=== PATIENT | female | born 1930 | race Caucasian/White ===

== ENCOUNTER 2017-10-20 21:44 | Inpatient (IN) | payer MEDICARE ==
[2017-10-20] MEDS ORDERED: NS 0.9% 1000 ML* 1,000 ML IV ONE (22:51)
[2017-10-20] MEDS ORDERED: Morphine INJ* 4 MG/ML 1 ML CARPUJECT IV ONE (22:51)
[2017-10-20] MEDS ORDERED: Ondansetron INJ* 2 MG/ML VIAL IV ONE (22:51)
[2017-10-20 23:20] LABS: Hematocrit 35 % (35-47); Hemoglobin 11.6 g/dl (12.0-16.0); Mean Corpuscular HGB Conc 33 g/dl (31-36); Mean Corpuscular Hemoglobin 31 pg (27-31); Mean Corpuscular Volume 94 fL (80-97); Mean Platelet Volume 10 um3 (7.4-10.4); Red Cell Distribution Width 17 % (10.5-15); White Blood Count 3.5 10^3/ul (3.5-10.8)
[2017-10-20 23:35] LABS: Albumin 3.9 g/dL (3.2-5.2); BUN/Creatinine Ratio 31.1 (8-20); Calcium 11.3 mg/dL (8.6-10.3); EGFR African American 55.2 (>60); EGFR Non-African American 42.9 (>60); Globulin 3.7 g/dL (2-4); Potassium 4.4 mmol/L (3.5-5.0); Total Bilirubin 0.8 mg/dL (0.2-1.0); Total Protein 7.6 g/dL (6.4-8.9)
[2017-10-20] MEDS ORDERED: Iodixanol* (CONTRAST) 320 MG/ML 100 ML SDV IV ONE (23:44)
[2017-10-21] MEDS ORDERED: Piperacillin/Tazobac ADVAN(*) 3.375 GM in NS 0.9% 100 ML* 100 ML IVPB ONE (00:57)
[2017-10-21] MEDS ORDERED: Ondansetron INJ* 2 MG/ML VIAL ONE (03:18)
--- NOTE | 2017-10-21 04:01 | ED ---
Daisy Fuentes Gabriel, scribed for Chayito Pedroza MD on 10/20/17 at 2252 . Adult Trauma - HPI Summary HPI Summary: This patient is a 86 year old F presenting [place] [facility] [place] by daughter with s/p fall that occurred [place]. The patient rates the pain 5/10 in severity. Symptoms aggravated by movement. Patient reports left sided rib pain. Patient denies LOC and neck pain. Pt reports that she has been unsteady recently and tonight she was walking on the sidewalk when she tripped and fell. - History of Current Complaint Chief Complaint: EDHeadInjury Stated Complaint: FALL/ HEAD INJURY Time Seen by Provider: 10/20/17 22:40 Hx Obtained From: Patient Mechanism of Injury: Fall Ambulatory at the Scene: Yes Loss of Consciousness: no loss of consciousness Onset/Duration: Still Present Onset of Pain: Immediate Onset Severity: Mild Current Severity: Mild Pain Intensity: 5 Pain Scale Used: 0-10 Numeric Location: Other - rib Associated Signs & Symptoms: Positive: Negative - LOC and neck pain - Allergy/Home Medications Allergies/Adverse Reactions: Allergies Allergy/AdvReac Type Severity Reaction Status Date / Time Amitriptyline [From Elavil] Allergy Rash Verified 10/20/17 21:52 Codeine Allergy Rash And Verified 10/20/17 21:52 Itching Paroxetine [From Paxil] Allergy Rash Verified 10/20/17 21:52 PMH/Surg Hx/FS Hx/Imm Hx Previously Healthy: No Endocrine/Hematology History: Reports: Hx Thyroid Disease Denies: Hx Diabetes Cardiovascular History: Reports: Hx Atrial Fibrillation EENT History: Denies: Hx Deafness Neurological History: Denies: Hx CVA - Surgical History Surgery Procedure, Year, and Place: mastectomy 1992 Infectious Disease History: No Infectious Disease History: Denies: Traveled Outside the [place] in Last 30 Days - Family History Known Family History: Positive: Other - Graves Negative: Cardiac Disease, Hypertension, Diabetes, Renal Disease, Respiratory Disease, Seizure Disorder Review of Systems Constitutional: Other - fall Musculoskeletal: Negative - neck pain Positive: Other - rib pain Neurological: Negative - LOC All Other Systems Reviewed And Are Negative: Yes Physical Exam - Summary Physical Exam Summary: VITAL SIGNS: Reviewed. GENERAL: Patient is a well-developed and nourished female who is lying comfortable in the stretcher. Patient is not in any acute respiratory distress. HEAD AND FACE: No signs of trauma. No ecchymosis, hematomas or skull depressions. No sinus tenderness. EYES: PERRLA, EOMI x 2, No injected conjunctiva, no nystagmus. ecchymosis and tenderness over left orbital EARS: Hearing grossly intact. Ear canals and tympanic membranes are within normal limits. MOUTH: Oropharynx within normal limits. NECK: Supple, trachea is midline, no adenopathy, no JVD, no carotid bruit, no c- spine tenderness, neck with full ROM. CHEST: Symmetric, Tender in left chest wall LUNGS: Clear to auscultation bilaterally. No wheezing or crackles. decreased breath sounds bilaterally CVS: Regular rate and rhythm, S1 and S2 present, no murmurs or gallops appreciated. ABDOMEN: Soft, non-tender. No signs of distention. No rebound no guarding, and no masses palpated. Bowel sounds are normal. EXTREMITIES: FROM in all major joints, no cyanosis or clubbing. Trace edema bilaterally NEURO: Alert and oriented x 3. No acute neurological deficits. Speech is normal and follows commands. SKIN: Dry and warm Triage Information Reviewed: Yes Vital Signs On Initial Exam: Initial Vitals Temp Pulse Resp BP Pulse Ox 98.4 F 67 16 138/76 98 10/20/17 21:48 10/20/17 21:48 10/20/17 21:48 10/20/17 21:48 10/20/17 21:48 Vital Signs Reviewed: Yes Diagnostics - Vital Signs Vital Signs Temp Pulse Resp BP Pulse Ox 10/20/17 21:48 98.4 F 67 16 138/76 98 - Laboratory Lab Results: Lab Results 10/20/17 10/20/17 Range/Units 23:05 23:05 WBC 3.5 (3.5-10.8) 10^3/ul RBC 3.70 L (4.0-5.4) 10^6/ul Hgb 11.6 L (12.0-16.0) g/dl Hct 35 (35-47) % MCV 94 (80-97) fL MCH 31 (27-31) pg MCHC 33 (31-36) g/dl RDW 17 H (10.5-15) % Plt Count 115 L (150-450) 10^3/ul MPV 10 (7.4-10.4) um3 Neut % (Auto) 56.9 (38-83) % Lymph % (Auto) 24.9 L (25-47) % Greene % (Auto) 12.1 H (1-9) % Eos % (Auto) 3.7 (0-6) % Baso % (Auto) 2.4 H (0-2) % Absolute Neuts (auto) 2.0 (1.5-7.7) 10^3/ul Absolute Lymphs (auto) 0.9 L (1.0-4.8) 10^3/ul Absolute Monos (auto) 0.4 (0-0.8) 10^3/ul Absolute Eos (auto) 0.1 (0-0.6) 10^3/ul Absolute Basos (auto) 0.1 (0-0.2) 10^3/ul Absolute Nucleated RBC 0.01 10^3/ul Nucleated RBC % 0.2 Sodium 135 (133-145) mmol/L Potassium 4.4 (3.5-5.0) mmol/L Chloride 102 (101-111) mmol/L Carbon Dioxide 26 (22-32) mmol/L Anion Gap 7 (2-11) mmol/L BUN 37 H (6-24) mg/dL Creatinine 1.19 H (0.51-0.95) mg/dL Est GFR ( Amer) 55.2 (>60) Est GFR (Non-Af Amer) 42.9 (>60) BUN/Creatinine Ratio 31.1 H (8-20) Glucose 104 H (70-100) mg/dL Calcium 11.3 H (8.6-10.3) mg/dL Total Bilirubin 0.80 (0.2-1.0) mg/dL AST 36 (13-39) U/L ALT 18 (7-52) U/L Alkaline Phosphatase 131 H (34-104) U/L Total Protein 7.6 (6.4-8.9) g/dL Albumin 3.9 (3.2-5.2) g/dL Globulin 3.7 (2-4) g/dL Albumin/Globulin Ratio 1.1 (1-3) Result Diagrams: 10/20/17 23:05 10/20/17 23:05 Lab Statement: Any lab studies that have been ordered have been reviewed, and results considered in the medical decision making process. - CT CT Maxillofacial CT Interpretation Completed By: Radiologist - positive for fracture on the lateral aspect of the left orbital sneha extending laterally to the left orbital floor and maxilla. There is a small amount of blood on the floor of the left orbit. ED physician has reviewed this radiology report. - Ultrasound No standard instances Ultrasound Interpretation Completed By: Radiologist - Splenic cyst. No splenic hematoma Adult Trauma Course/Dx - Course Course Of Treatment: Time:I reviewed labs and imaging studies with Pt and her family. Pt C/O left side chest wall. Pt stated that she does not feel comforatble to go home. Because of her pain. Pt given Zosyn for her orbital FX. Pt will be admitted for pain control and Maxilo-facial consult. Case discussed with admitting hospitalist,Dr Howell. She asked me to call DR Carpenter who stated that, Have the hoispitalist admit pt. Pt will be admitted to the hospitalist. Dr Howell. - Diagnoses Provider Diagnoses: Orbital fracture, Nasal bone fx-closed, Chest wall contusion - Physician Notifications Discussed Care Of Patient With: Светлана Howell Time Discussed With Above Provider: 03:30 Instructed by Provider To: Admit As Inpatient Discharge - Discharge Plan Condition: Fair Disposition: AGAINST MEDICAL ADVICE Referrals: Shy Carpenter MD [Primary Care Provider] - The documentation as recorded by the Daisy rose Gabriel accurately reflects the service I personally performed and the decisions made by me, Chayito Pedroza MD.
[2017-10-21] MEDS ORDERED: NS 0.9% 1000 ML* 1,000 ML IV SCH (04:30)
[2017-10-21] MEDS ORDERED: traMADol TAB* 50 MG PO PRN (04:46)
[2017-10-21] MEDS ORDERED: Ondansetron INJ* 2 MG/ML VIAL IV PRN (04:48)
[2017-10-21] MEDS: Levothyroxine TAB* 75 MCG TAB PO SCH (06:19)
[2017-10-21] MEDS: Piperacillin/Tazobac ADVAN(*) 3.375 GM in NS 0.9% 100 ML* 100 ML IVPB SCH ×3 (06:22→19:51)
--- NOTE | 2017-10-21 07:22 | RAD ---
INDICATION: Head injury. COMPARISON: There are no prior studies available for comparison. TECHNIQUE: Contiguous axial sections of the brain were obtained from the skull base to the vertex without contrast. FINDINGS: The ventricles, cisterns and sulci are within normal limits. There is a small focal lacunar infarct present in the anterior limb of the internal capsule on the right side. No other focal abnormalities or mass effect are seen. There is no evidence for hemorrhage. There is an air-fluid level within the left maxillary sinus and there appears to be a bony fragment that region consistent with a fracture. There is CT of the facial bones to follow. IMPRESSION: 1. NO EVIDENCE FOR ACUTE INTRACRANIAL ABNORMALITY. 2. PROBABLE LEFT MAXILLARY SINUS FRACTURE, CT OF THE FACIAL BONES TO FOLLOW. 3. 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
--- NOTE | 2017-10-21 07:35 | RAD ---
INDICATION: Facial trauma. COMPARISON: There are no prior studies available for comparison. TECHNIQUE: Contiguous axial sections of the axial images of the facial bones were obtained and reconstructed in the coronal and sagittal planes. FINDINGS: Soft tissue swelling is noted over the left orbit and maxilla. There is a fracture of the posterior lateral wall of the left orbit extending into the lateral orbital floor. There is slight depression of a portion of the lateral orbital floor up to 4 mm. There is no evidence for muscle or fat herniation. There is an air-fluid level within the left maxillary sinus consistent with the fractures. The zygomatic arch appears intact. The mandible appears intact. There is a slightly depressed fracture of the left nasal bone. There is moderate deviation of the nasal septum toward the left side. The pterygoid plates appear intact. There is an air-fluid level within the left maxillary sinus as previously noted. The paranasal sinuses and mastoid air cells otherwise appear clear. IMPRESSION: 1. NONDISPLACED FRACTURE OF THE POSTEROLATERAL WALL OF THE LEFT ORBIT. 2. SLIGHTLY DEPRESSED FRACTURE OF THE LEFT ORBITAL FLOOR. 3. SLIGHTLY DEPRESSED FRACTURE OF THE LEFT NASAL BONE.
--- NOTE | 2017-10-21 07:45 | RAD ---
INDICATION: Trauma. COMPARISON: There are no prior studies available for comparison. TECHNIQUE: Contiguous axial sections were obtained from the skull base through the C7 vertebra. The tip of the C7 spinous process is not included on the film. Images were reconstructed in the sagittal and coronal planes. FINDINGS: There is straightening of the cervical spine with loss of the normal cervical lordosis. No prevertebral soft tissue swelling or fracture is seen. At the C5-C6 level there is mild posterior uncinate process spurring associated with a mild broad-based bulge. This causes mild spinal canal narrowing. There is mild bilateral neural foraminal narrowing. At the C6-C7 level there is mild posterior uncinate process spurring causing mild spinal canal narrowing and mild bilateral neural foraminal narrowing. IMPRESSION: 1. STRAIGHTENING OF THE CERVICAL SPINE, NO EVIDENCE FOR FRACTURE OR SUBLUXATION. 2. MILD TO MODERATE CERVICAL SPONDYLOSIS.
--- NOTE | 2017-10-21 08:15 | RAD ---
INDICATION: Trauma evaluate for splenic injury, correlate with abnormal CT study. COMPARISON: Comparison is made with a prior CT of the chest abdomen and pelvis from October 21, 2017. TECHNIQUE: Multiple real-time images of the left upper quadrant were obtained. FINDINGS: The spleen is normal in size, shape and echogenicity. The spleen measured 9.7 x 3.8 x 2.7 cm cm. There is a small focal hypoechoic area present in the central portion of the spleen which is well-defined measuring 0.8 x 0.7 x 0.9 cm. This appears smaller than the CT abnormality and is suggestive of a cyst. No hematoma is seen. No free intraperineal fluid is noted. The left kidney is visualized and measures 10.4 x 5.5 x 4.7 cm. No focal abnormality or hydronephrosis is seen. IMPRESSION: THE SPLEEN IS NORMAL IN SIZE THERE IS A SMALL HYPOECHOIC LESION LIKELY REPRESENTING A CYST.
--- NOTE | 2017-10-21 08:22 | HP ---
ADDENDUM NOW INCLUDED ON THIS REPORT CC: Dr. Carpenter * HISTORY AND PHYSICAL: DATE OF ADMISSION: 10/21/17 PRIMARY CARE PROVIDER: Dr. Shy Carpenter. CHIEF COMPLAINT: Status post fall. HISTORY OF PRESENT ILLNESS: Ludmila Wood is an 86-year-old female with history of paroxysmal atrial fibrillation, hypertension, CHF. The patient stated that she was walking on side walk and she tripped and fell. She hit her left chest and the left side of her head. She suffered from orbital floor fracture and left nasal bone fracture. She also appears to have bruise to her chest, she complains of pleuritic chest pain after the fall. The patient lives alone in [facility] and she is going to be placed on overnight observation for physical therapy evaluation to return home. PAST MEDICAL HISTORY: 1. History of atrial fibrillation. 2. History of CHF. 3. History of hyperthyroidism, status post radioiodine treatment and subsequent hypothyroidism. 4. Dyslipidemia. 5. History of mastectomy in 1992. 6. History of chronic kidney disease, stage 2 to 3, with creatinine at baseline of 1.1 to 1.2. MEDICATIONS: At home, include: 1. Aldactone 25 mg daily. 2. Magnesium chloride 64 mg daily. 3. Levothyroxine 75 mcg daily. 4. Hydrochlorothiazide 50 mg daily. 5. Furosemide 20 mg daily. 6. Aspirin 81 mg daily. Please note that this medication list was produced by the patient from memory. She did not bring a list and we were unable to access for any medical records or the patient's pharmacy records to confirm it. ALLERGIES: Include AMITRIPTYLINE, CODEINE, and PAROXETINE. FAMILY HISTORY: Positive for mother who at age of 86 secondary to stroke and father who at age of 67 secondary to heart disease. SOCIAL HISTORY: The patient lives alone in [facility] in senior apartment living building. Her surrogate is her daughter, Eulalia. The patient is do not resuscitate. She quit smoking in 1956 and drinks rare alcohol. She denies any drug use. The patient stated that she ambulates usually without any use of a walker or a cane. REVIEW OF SYSTEMS: Please see history of present illness. The patient stated that occasionally her legs get swollen, but otherwise she has not noted any problems with increasing shortness of breath, worsening leg edema or increase in weight. The patient had been in her usual state of health before the fall and denies any prodrome of symptoms, specifically she denies any chest pain or shortness of breath. After the fall, she noted left-sided pleuritic chest pain. She denies loss of consciousness before the fall. All the remaining 12 systems were reviewed with the patient and were otherwise negative. PHYSICAL EXAMINATION GENERAL: The patient is a pleasant 86-year-old female with a BMI of 32. The patient is in no acute distress. Alert, awake, and oriented x3. Rather hard of hearing. VITAL SIGNS: Blood pressure of 103/35, heart rate of 50 and regular, respiratory rate 20, oxygen saturation 94% on room air, temperature 98.4. HEENT: Head: With an ecchymotic area surrounding the left eye. Eyes: Extraocular muscles are intact. Pupils are equal and reactive to light and accommodation. Oropharynx clear. Mucosa moist. NECK: Supple. No JVD. No bruits bilaterally. RESPIRATORY: Clear to auscultation bilaterally. CARDIOVASCULAR: Regular rate and rhythm. No murmurs. ABDOMEN: Soft and nontender. Bowel sounds present in all 4 quadrants. EXTREMITIES: There is trace bilateral ankle edema. Pulses are +2 bilaterally. There is no clubbing or cyanosis. NEURO: Speech is clear. Cranial nerves II through XII grossly intact. Motor strength is 5/5 bilaterally. PSYCHIATRIC: Oriented x3 with no evidence of anxiety or depression. SKIN: On evaluation of the skin, there is an ecchymotic area overlying the left eye. There is also abrasion on the left side of the patient's nose. No other bruises, ecchymosis, or rashes were noted. DIAGNOSTIC STUDIES/LAB DATA: chloride 102, carbon dioxide 26, BUN 37, creatinine 1.19. Liver function tests are unremarkable. Calcium level of 11.3. CBC: White blood cell count of 3.5, hemoglobin of 11.6, hematocrit of 35 , and platelet of 115. The patient's brain CT, impression: "No hemorrhage. No mass. Very small lacunar infarct anterior limb, right internal capsule, indeterminate age. No other obvious infarcts. The skull is intact. Fluid in the right maxillary sinus. Facial CT to follow." Maxillofacial CT, impression: " fracture of the lateral aspect of the lateral orbital floor extending on the right to the junction of the left orbital floor and maxilla. No herniation of orbital contents; however, there was a small amount of blood layering in the floor of the left orbit. Please note that the left infraorbital foramen may be involved. Check for cheek numbness. There is also a new minimally displaced fracture of the left nasal bone. No other orbital or facial fractures. Globes and orbits are intact. Fluid, blood in the left maxillary sinus." Cervical spine CT showed no fractures. CT of the abdomen showed 1.7-cm complex splenic lesion, appears to be complex cyst. There are also liver cysts noted. A subsequent abdominal ultrasound, impression: "The splenic lesion actually appeared smaller on the ultrasound; it looks like a cyst, 1 cm. No evidence of splenic hematoma, laceration, or perisplenic fluid." ASSESSMENT AND PLAN: Ludmila Wood is an 86-year-old female who had a mechanical fall and suffered from a left orbital fracture. The patient is going to be placed on overnight observation. I will leave it to the attending physician during the daytime to discuss the patient's case with either ENT physician or surgeon in regards to patient's orbital fracture. For the time being, as per the ED physician's recommendation, the patient was continued on Zosyn that was started in the emergency department due to the patient's orbital/ maxillary fracture. 1. In regards to the patient's congestive heart failure, that is not in exacerbation. The patient is going to be continued on her daily medications as well as daily weights are going to be obtained. 2. For patient's hypothyroidism, levothyroxine is going to be continued as previously taken. 3. In regards to the patient's atrial fibrillation, today during her evaluation , she was in regular rhythm. She is on baby aspirin, which is going to be continued. 4. For DVT prophylaxis, the patient is going to be placed on sequential compression devices. Heparin is not going to be started on the patient due to fracture with scant blood in the maxillary sinus. 5. The patient's code status is do not resuscitate and MOLST form was signed. 6. In regards to the patient's left chest contusion, incentive spirometry is going to be provided. 7. To evaluate this patient status post fall, Physical Therapy, Occupational Therapy will see the patient for evaluation. TIME SPENT: Approximately 65 minutes was spent on admission of this patient, more than half that time was spent [id number] with the patient during the interview and physical exam. ADDENDUM: In regards to the patient's hypercalcemia, the patient has history of mild hypercalcemia in the past. She is on hydrochlorothiazide that may contribute to hypercalcemia that is going to be discontinued. The patient's parathyroid hormone level is going to be obtained. We will repeat calcium level after the 1 L of normal saline that she received in the emergency department. Due to her history of congestive heart failure and due to she is on multiple diuretics, I will not institute anymore intravenous hydration until her lab work comes back. [id number]/[facility]PS #: [id number]/CPS #: [id number] SEVEN
--- NOTE | 2017-10-21 08:22 | RAD ---
INDICATION: Tripped and fell. Left rib pain. Request for CT chest/abdomen/pelvis COMPARISON: Limited abdominal sonogram same date TECHNIQUE: Axial source images were obtained from the thoracic inlet to the symphysis pubis following administration of oral and intravenous contrast. 100 mL Visipaque 320 was utilized. Coronal and sagittal reconstructed images were acquired. CHEST FINDINGS: Neck/thyroid: The cephalad most images are believed to show the caudal portions of both submandibular glands. The visualized thyroid appears diminutive.. Chest wall: There are no acute abnormalities of the bony thorax or chest wall. Reconstructed sagittal images show slight cortical offset of the sternum which is believed to be related to registration artifact from breathing motion. The ER states that there is no sternal trauma. There is no supraclavicular, infraclavicular, or axillary lymphadenopathy. Lungs : There are no pulmonary parenchymal masses or infiltrates. There is mild basilar atelectasis. The pulmonary interstitium appears prominent. There are no endobronchial lesions. Cardiomediastinal structures: There is significant cardiomegaly. There is a tiny pericardial effusion There is no evidence of aortic aneurysm or dissection. The pulmonary vessels appear normal. There is no mediastinal or hilar adenopathy. The esophagus appears normal. Pleura : There are no pleural-based masses or effusions. ABDOMINAL/PELVIC FINDINGS: Liver: The liver is normal in size. There is a 2.4 cm cyst of the hepatic dome. There is no ductal dilatation. Gallbladder: There are no calcified gallstones. There is no evidence of wall thickening or pericholecystic fluid. Spleen: The spleen is normal in size. There are low suspicion hypodense splenic entities in the 1 cm range which on ultrasonography are most consistent with cysts. Pancreas: There is no evidence of pancreatic mass or ductal dilatation. Adrenal glands: There is no evidence of adrenal mass. Kidneys: The kidneys are normal in size and position. There are prompt nephrograms and there is prompt excretion bilaterally. There are no renal parenchymal masses. There is no evidence of nephrolithiasis. Adenopathy: There is no evidence of adenopathy by size criteria. Fluid collections: There are no free or localized fluid collections. Vessels:There are atherosclerotic changes of the aorta. There is no focal aneurysm. The IVC is unremarkable . There are prominent periuterine vessels GI tract: There are no acute CT bowel findings. There is no obstruction. The stomach and small bowel appear normal. The lower GI tract is normal. The cecum, ileocecal valve, and terminal ileum appear normal. The appendix is visualized and appear normal. Pelvic organs: The uterus and adnexa appear normal other than the prominent periuterine vessels Bladder: There are no bladder masses. Abdominal and pelvic soft tissues: The extraperitoneal abdominal and pelvic soft tissues appear normal.. Osseous structures: There are no acute osseous findings. There are spondylitic changes. IMPRESSION: 1. CT findings most consistent with hepatic and splenic cysts. 2. Marked cardiomegaly. Prominent pulmonary arteries. Suspect right-sided heart failure. 3. No CT evidence of traumatic injury to the solid viscera or free fluid.
--- NOTE | 2017-10-21 08:30 | HP ---
HISTORY AND PHYSICAL: ADDENDUM: In regards to the patient's hypercalcemia, the patient has history of mild hypercalcemia in the past. She is on hydrochlorothiazide that may contribute to hypercalcemia that is going to be discontinued. The patient's parathyroid hormone level is going to be obtained. We will repeat calcium level after the 1 L of normal saline that she received in the emergency department. Due to her history of congestive heart failure and due to she is on multiple diuretics, I will not institute anymore intravenous hydration until her lab work comes back. [id number]/[facility] #: [id number] [facility]ITAL[facility]
[2017-10-21] MEDS: Aspirin EC Low Dose* 81 MG TAB.EC PO SCH (08:32)
[2017-10-21] MEDS: Magnesium Chloride EC TAB* 64 MG PO SCH ×3 (08:32→19:50)
[2017-10-21] MEDS ORDERED: Furosemide TAB* 20 MG PO SCH (09:00)
[2017-10-21] MEDS ORDERED: Hydrochlorothiazide TAB* 25 MG PO SCH (09:00)
[2017-10-21] MEDS ORDERED: Spironolactone TAB* 25 MG PO SCH ×2 (09:00→21:00)
[2017-10-21 09:53] LABS: Calcium (PTH Intact) 10.3 mg/dL (8.6-10.3)
[2017-10-21] MEDS: Furosemide TAB* 20 MG PO SCH (12:06)
--- NOTE | 2017-10-21 20:29 | CONS ---
CC: Dr. Shy Carpenter; Dr. River CARDIOLOGY CONSULTATION: DATE OF CONSULT: 10/21/17 REASON FOR EVALUATION: Bradycardia and fall. HISTORY OF PRESENT ILLNESS: This is a very pleasant 86-year-old woman with a history of a cardiomyopathy about 40 years ago, possibly related to untreated Graves' disease and tachycardia-induced cardiomyopathy and AFib. She had CHF at that time and was treated at [facility]. She apparently recovered from that and had normal LV function on a subsequent echo and as recently in 2014, she did develop severe TR and right-sided heart failure and has been treated aggressively with diuretics for that. She said that earlier this year, her Aldactone was increased. She said that she lives independently and drives. She can walk 5 or 10 minutes without a problem usually, but she had about a month ago, she got more winded walking to [facility], which had not been a problem for her earlier in the year. She was at a green party at a local restaurant with some friends and family. She said that she was there about 2 hours, had no alcoholic beverages. She said that she got up to leave and was walking out, she grabbed the hand rail, walked down the stairs and then she was walking a short distance and turned to speak to somebody and lost the balance and fell, smashed the left side of her face. She denies that she lost consciousness, but she thinks she lost her balance. She hit her left chest and left side of her head. She suffered an orbital floor fracture and left nasal bone fracture. She also bruised her chest. She says it hurts when she takes a deep breath. She was admitted for evaluation. While she has been here, she has been in AFib with relatively low heart rate in the 40s and 50s and occasional pauses of 2.2 seconds. She says that about 2 weeks prior to the fall that she has noted occasionally she gets lightheaded with walking short distances, but has not had any syncope. She denies orthopnea or peripheral edema. No strokes or mini- strokes and she has declined anticoagulation. In the past, she uses aspirin. She denies fevers, chills, or sweats. No diarrhea. No dysuria. PAST MEDICAL HISTORY: atrial fibrillation; CHF; hyperthyroidism, status post radioiodine treatment and subsequent hypothyroidism, treated with levothyroxine ; hyperlipidemia; mastectomy in 89 on the right; history of chronic kidney disease/creatinine of up to 1.2; history of right-sided heart failure and severe TR. MEDICATIONS: Include: 1. Acetaminophen. 2. Aspirin 81 mg a day. 3. Lasix 20 mg q.48, 40 mg q.48 alternating with 40 mg q.48. 4. Levothyroxine 75 mcg a day. 5. Magnesium 64 mg a day. 6. Slow-Mag 64 mg b.i.d. 7. Zofran 4 mg IV q.8 p.r.n. 8. Piperacillin and tazobactam daily q.8. 9. Spironolactone 25 mg b.i.d. 10. Ultram 50 mg a day. As an outpatient, she was on: 1. Furosemide 20 mg a day. 2. Spironolactone 25 mg a day. 3. Magnesium chloride 64 mg a day. 4. Aspirin 81 mg a day. 5. Levothyroxine 75 mcg a day. 6. Hydrochlorothiazide 50 mg a day. ALLERGIES: Include AMITRIPTYLINE, CODEINE, and PAROXETINE. FAMILY HISTORY: She reports that her father of an GA at 65, mother of a CVA at 86. She has one brother, who is alive and well. Four siblings, who . SOCIAL HISTORY: She said she has rare alcohol perhaps a drink at social gathering, less than once a week, but has not had any alcohol in 2 weeks. She had 8 children and she is . REVIEW OF SYSTEMS: Review of systems x10 was negative except as above. PHYSICAL EXAMINATION: She is a well-developed, obese female, in no apparent distress. Blood pressure 98/49, O2 sat 94%, heart rate of 51, weight 200 pounds. JVD approximately 8 cm, carotids 2+ without bruits. No cervical adenopathy. No thyromegaly. There is ecchymosis over her left orbit. Alert and oriented x3. Cardiac Exam: S1, S2 somewhat distant. No clear murmurs, gallops, or rubs, although the room was somewhat noisy. Chest was clear. Abdomen: Bowel sounds present, nontender. Femoral pulses intact without bruits. Distal pulses intact, no edema. Motor strength 5/5 bilaterally. Deep tendon reflexes 2/4. Alert and oriented x3. DIAGNOSTIC STUDIES/LAB DATA: Include hemoglobin 11.6, platelet count of 115, sodium 135, potassium of 4.4, calcium 11.3 and 10.4, ionized calcium of 5.42, mildly elevated alk phos of 131, PTH intact at 9, calcium at 10.3 today, hemoglobin of 11.6, hematocrit of 35. CT of abdomen, chest and pelvis revealed hepatic and splenic cyst, marked cardiomegaly, prominent pulmonary arteries, suspected right-sided heart failure. No CT evidence of traumatic injury to the solid viscera or free fluid. 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 Abdominal ultrasound from October 21 revealed spleen normal size, small hypoechoic lesion likely representing a cyst. EKG from October 21 revealed what appear to be atrial fibrillation with a ventricular response in the 50s, prolonged QT, right bundle-branch block, no acute changes. There are no previous for comparison. Her echocardiogram from January of 2015 revealed normal LV function with mild concentric LVH, EF of 60% to 65%, septal flattening of interventricular septum consistent with right ventricular volume overload and pressure overload, moderate left atrial enlargement, RV is moderately dilated, RV global function is mild to moderately reduced, trace to mild MR, severe TR. Compared to the previous study of February of 2011, the low normal RV function is new. There was severe TR in the previous. IMPRESSION: My impression is that Ms. Wood had fall of unclear etiology. She also had some lightheadedness with exertion of unclear etiology in the setting of atrial fibrillation with a slow ventricular response and a history of "right-sided heart failure." It is possible that she also has low normal blood pressures here in the combination of a low heart rate, RV failure and dehydration may be contributing to her lightheadedness. RV dysfunction can predispose to low preload, low output, and hypotension. It is unclear whether these factors played a role in her fall or not. It is unclear whether her symptoms are related to the bradycardia and whether a pacemaker will make a difference especially in light of the history of RV dysfunction. For the time being, I would recommend the followin. Would cut back on diuretics if possible given her low blood pressures. 2. Would obtain a repeat echocardiogram. 3. Would attempt an exercise test to see if she has augmentation of her heart rate with exercise or insufficient blood pressure response. 4. If indeed her symptoms are related to RV heart failure, then she will need to restrict her activities to avoid hypotension and hypoperfusion with exercise. 5. I discuss the possibility of pacemaker given her advanced age, she would like to avoid aggressive interventions, but did not rule it out. 6. Further recommendations will depend on her clinical course. 7. I discussed with the patient the potential risk of cardioembolic events and AFib given her preference not to be anticoagulated and the risk of fall and further trauma. She prefers to withhold anticoagulation at this point in time. 8. If the above workup fails to provide a culprit for lightheadedness, consider an event monitor as an outpatient. [id number]/[facility] #: [id number] SEVEN
[2017-10-22] MEDS: Piperacillin/Tazobac ADVAN(*) 3.375 GM in NS 0.9% 100 ML* 100 ML IVPB SCH ×3 (05:31→22:22)
[2017-10-22] MEDS: Levothyroxine TAB* 75 MCG TAB PO SCH (05:32)
[2017-10-22 06:34] LABS: Hematocrit 32 % (35-47); Hemoglobin 10.6 g/dl (12.0-16.0); Mean Corpuscular HGB Conc 33 g/dl (31-36); Mean Corpuscular Hemoglobin 31 pg (27-31); Mean Corpuscular Volume 94 fL (80-97); Mean Platelet Volume 10 um3 (7.4-10.4); Red Blood Count 3.41 10^6/ul (4.0-5.4); Red Cell Distribution Width 17 % (10.5-15); White Blood Count 4.3 10^3/ul (3.5-10.8)
[2017-10-22 06:37] LABS: Albumin 3.4 g/dL (3.2-5.2); BUN/Creatinine Ratio 23.2 (8-20); Calcium 10.6 mg/dL (8.6-10.3); Comments Flag Yes; EGFR African American 40.7 (>60); EGFR Non-African American 31.6 (>60); Globulin 3.4 g/dL (2-4); Magnesium 1.9 mg/dL (1.9-2.7); Potassium 4.2 mmol/L (3.5-5.0); Total Bilirubin 0.9 mg/dL (0.2-1.0); Total Protein 6.8 g/dL (6.4-8.9)
[2017-10-22 06:38] LABS: Add Diff/Slide Review? Slide Review Added
[2017-10-22 06:50] LABS: TSH (Thyroid Stimulating Horm) 2.87 mcIU/mL (0.34-5.60)
[2017-10-22 07:29] LABS: Hypochromasia 1+; Target Cells 1+
[2017-10-22] MEDS ORDERED: Perflutren Lipid Microsphere* 3 ML VIAL ONE (08:06)
--- NOTE | 2017-10-22 09:13 | ECHO ---
Patient: STEPHANIE WILCOX V [facility] Rec#: [id number] : 1930 Date: 10/22/2017 Age: 86y Height: 165.1 cm / 65.0 in Weight: 90.72 kg / 199.9 lbs Sex: F BSA: 1.98 Room#: [facility] Admit Date#: 10/21/2017 Type: Inpatient Referring: Mariano River MD Reading: Mariano River MD Turbine Blade Assembler: Shelby Little RDCS CC: Shy Carpenter MD Transthoracic Echocardiogram Indication: A-fib BP: 102/50 HR: 73 Rhythm: A-Fib Findings History: CM,Graves disease,a-fib,CHF,hyperthyroid,HLD,s/p mastectomy,CKD. Technical Comments: The study is technically limited due to patient body habitus. Definity used to enhance images. Left Ventricle: The left ventricular chamber size is normal. The estimated ejection fraction is 55-60%. The assessment of diastolic function is non-diagnostic. Left Atrium: The left atrium is severely dilated. Right Ventricle: The right ventricle is severely dilated. The right ventricular global systolic function is severely reduced. Flattened in systole and diastole consistent with right ventricular pressure and volume overload. Right Atrium: The right atrial cavity size is severely dilated. Aortic Valve: The aortic valve is trileaflet. There is a trace of aortic regurgitation. There is no evidence of aortic stenosis. Mitral Valve: The mitral valve leaflets are mildly thickened. There is mild mitral regurgitation. There is no evidence of mitral stenosis. Tricuspid Valve: The tricuspid valve leaflets are normal. There is severe tricuspid regurgitation. There is evidence that pulmonary hypertension may be underestimated. There is no tricuspid stenosis. Pulmonic Valve: The pulmonic valve appears normal. Pericardium: The pericardium appears normal. Aorta: There is mild dilatation of the ascending aorta. There is no dilatation of the aortic arch. There is no dilation of the aortic root. Pulmonary Artery: The main pulmonary artery appears normal. Venous: The venous system is not well visualized. Contrast: Definity was used to optimize study. 4 ml used. Intravenous contrast was used to enhance endocardial border definition. Conclusions The estimated ejection fraction is 55-60%, closer to 60%. The left atrium is severely dilated. The right ventricle is severely dilated. The right ventricular global systolic function is severely reduced. Flattened in systole and diastole consistent with right ventricular pressure and volume overload. Similar to 01/2015 except that the RV function seems to have decreased further. The right atrial cavity size is severely dilated. There is a trace of aortic regurgitation. There is mild mitral regurgitation. There is severe tricuspid regurgitation. There is evidence that pulmonary hypertension may be underestimated. There is mild dilatation of the ascending aorta. Measurements Name Value Normal Range RVIDd (AP) 2D 4 cm (0.9 - 2.6) RVDdMajor (2D) 7.3 cm (2.2 - 4.4) RAd ISD 4CH 8.8 cm (3.4 - 4.9) RA (A4C)W 6.1 cm (2.9 - 4.6) IVSd (2D) 0.8 cm (0.6 - 1) LVPWd (2D) 0.8 cm (0.6 - 1) LVIDd (2D) 4.2 cm (3.6 - 5.4) LVIDs (2D) 2 cm - LV FS (2D) 52 % (25 - 45) Aortic Annulus 2.1 cm (1.4 - 2.6) Ao root diameter (2D) 2.9 cm (2.1 - 3.5) Ascending Ao 3.6 cm (2.1 - 3.4) Aortic arch 3.2 cm (1.8 - 3.4) Descending Ao 0.5 cm - LA dimension (AP) 2D 5 cm (2.3 - 3.8) LAd ISD 4CH 6.1 cm (2.9 - 5.3) LA ISD 4CH W 4.4 cm (2.5 - 4.5) Name Value Normal Range LA ESV SP 4CH (A/L) 108 ml - LA ESV SP 2CH (A/L) 144 ml - LA ESV BP (A/L) 182 ml - LA ESV BP (A/L) index 64.44 ml/m2 - LA ESV SP 4CH (MOD) 95 ml - LA ESV SP 2CH (MOD) 135 ml - Name Value Normal Range MV E-wave Vmax 1 m/sec - MV deceleration time 165 msec - LV septal e' Vmax 0.06 m/sec - LV lateral e' Vmax 0.1 m/sec - LV E:e' septal ratio 16.67 ratio - LV E:e' lateral ratio 10 ratio - Name Value Normal Range AV Vmax 1.3 m/sec - AV VTI 31.8 cm - AV peak gradient 6.54 mmHg - AV mean gradient 3.03 mmHg - LVOT Vmax 0.8 m/sec - LVOT VTI 19.81 cm - LVOT peak gradient 2.56 mmHg - LVOT mean gradient 1.34 mmHg - AR PHT 610 msec - AR peak gradient 28.31 mmHg - Name Value Normal Range MR Vmax 4.1 m/sec - MR VTI 189.5 cm - Name Value Normal Range TR Vmax 1.5 m/sec - TR peak gradient 8.63 mmHg - RAP 8 mmHg - RVSP 16 mmHg - Name Value Normal Range PV Vmax 0.9 m/sec - PV peak gradient 3.39 mmHg -
[2017-10-22] MEDS: Magnesium Chloride EC TAB* 64 MG PO SCH ×3 (10:01→22:19)
[2017-10-22] MEDS: Aspirin EC Low Dose* 81 MG TAB.EC PO SCH (10:01)
[2017-10-22] MEDS: Spironolactone TAB* 25 MG PO SCH (10:01)
[2017-10-22] MEDS: Acetaminophen TAB* 325 MG PO PRN (10:11)
[2017-10-22] MEDS ORDERED: Furosemide TAB* 40 MG PO SCH (11:00)
--- NOTE | 2017-10-22 13:48 | RAD ---
INDICATION: 86-year-old with chest pain. Atrial fibrillation with right bundle branch block. Cardiomyopathy. Hypertension. COMPARISON: None TECHNIQUE: A single day SPECT protocol was utilized. Rest images were acquired following the intravenous injection of 10.6 millicuries of technetium 99m tetrofosmin. Pharmacologic stress images were acquired following the intravenous administration of 25.0 millicuries of technetium 99m tetrofosmin. FINDINGS: There are no defects of the stress-induced or fixed nature. There is mild attenuation artifact in the anterior wall The cardiac chamber size is normal. There are no wall motion abnormalities. The ejection fraction is calculated at 81 percent during stress. Source images show cardiomegaly. IMPRESSION: CARDIOMEGALY . NO DEFECTS OF A STRESS-INDUCED OR FIXED NATURE. NORMAL WALL MOTION AND CONTRACTILITY ASSESSMENT: LOW-RISK Based on imaging criteria from ACC/AHA 2002 Guideline Update for the Management of Patients With Chronic Stable Angina Table 23. Noninvasive Risk Stratification. Reference. HIGH-RISK (GREATER THAN 3% ANNUAL MORTALITY RATE) - Severe resting left ventricular dysfunction (LVEF < 35%) - Severe exercise left ventricular dysfunction (exercise LVEF < 35%) - Stress-induced large perfusion defect (particularly if anterior) - Stress-induced multiple perfusion defects of moderate size - Large, fixed perfusion defect with LV dilation or increased lung uptake (thallium-201) - Stress-induced moderate perfusion defect with LV dilation or increased lung uptake (thallium-201) INTERMEDIATE-RISK (1%-3% ANNUAL MORTALITY RATE) - Mild/moderate resting left ventricular dysfunction (LVEF = 35% to 49%) - Stress-induced moderate perfusion defect without LV dilation or increased lung intake (thallium-201) LOW-RISK (LESS THAN 1% ANNUAL MORTALITY RATE) - Normal or small myocardial perfusion defect at rest or with stress
[2017-10-22] MEDS ORDERED: Aminophylline IV* 25 MG/ML 10 ML VIAL ONE (13:56)
[2017-10-22] MEDS ORDERED: Regadenoson* 0.4 MG/5 ML SYRINGE ONE (13:56)
[2017-10-22] MEDS ORDERED: NS 0.9% 100 ML* 100 ML ONE ×2 (15:06→22:17)
[2017-10-22] MEDS: Polyethylene Glycol 3350* 17 GM PACKET PO SCH (22:20)
[2017-10-23] MEDS: Piperacillin/Tazobac ADVAN(*) 3.375 GM in NS 0.9% 100 ML* 100 ML IVPB SCH ×3 (06:23→20:12)
[2017-10-23] MEDS: Levothyroxine TAB* 75 MCG TAB PO SCH (06:24)
[2017-10-23 07:22] LABS: Hematocrit 32 % (35-47); Hemoglobin 10.4 g/dl (12.0-16.0); Mean Corpuscular HGB Conc 33 g/dl (31-36); Mean Corpuscular Hemoglobin 31 pg (27-31); Mean Corpuscular Volume 94 fL (80-97); Mean Platelet Volume 10 um3 (7.4-10.4); Red Blood Count 3.37 10^6/ul (4.0-5.4); Red Cell Distribution Width 17 % (10.5-15); White Blood Count 4.4 10^3/ul (3.5-10.8)
[2017-10-23 07:26] LABS: Comments Flag Yes
[2017-10-23 07:34] LABS: BUN/Creatinine Ratio 24.8 (8-20); Calcium 10.3 mg/dL (8.6-10.3); EGFR African American 43.9 (>60); EGFR Non-African American 34.2 (>60); Potassium 3.9 mmol/L (3.5-5.0)
[2017-10-23] MEDS: Aspirin EC Low Dose* 81 MG TAB.EC PO SCH (08:27)
[2017-10-23] MEDS: Magnesium Chloride EC TAB* 64 MG PO SCH ×2 (08:27→20:12)
[2017-10-23] MEDS: Spironolactone TAB* 25 MG PO SCH (08:27)
[2017-10-23] MEDS: Acetaminophen TAB* 325 MG PO PRN ×2 (08:27→20:12)
[2017-10-23] MEDS: Polyethylene Glycol 3350* 17 GM PACKET PO SCH (08:28)
[2017-10-23] MEDS ORDERED: Spironolactone TAB* 25 MG PO SCH (09:00)
[2017-10-23] MEDS ORDERED: Polyethylene Glycol 3350* 17 GM PACKET PO PRN (12:00)
[2017-10-23] MEDS: Furosemide TAB* 20 MG PO SCH (12:16)
[2017-10-24 05:27] LABS: Hematocrit 31 % (35-47); Hemoglobin 10.5 g/dl (12.0-16.0); Mean Corpuscular HGB Conc 34 g/dl (31-36); Mean Corpuscular Hemoglobin 32 pg (27-31); Mean Corpuscular Volume 95 fL (80-97); Mean Platelet Volume 10 um3 (7.4-10.4); Red Cell Distribution Width 16 % (10.5-15); White Blood Count 4.9 10^3/ul (3.5-10.8)
[2017-10-24 05:30] LABS: Comments Flag Yes
[2017-10-24] MEDS: Levothyroxine TAB* 75 MCG TAB PO SCH (05:30)
[2017-10-24] MEDS: Piperacillin/Tazobac ADVAN(*) 3.375 GM in NS 0.9% 100 ML* 100 ML IVPB SCH ×2 (05:31→12:23)
[2017-10-24 05:42] LABS: Albumin 3.3 g/dL (3.2-5.2); BUN/Creatinine Ratio 25.2 (8-20); Calcium 10.4 mg/dL (8.6-10.3); EGFR African American 40.7 (>60); EGFR Non-African American 31.6 (>60); Potassium 3.8 mmol/L (3.5-5.0); Total Bilirubin 0.9 mg/dL (0.2-1.0); Total Protein 6.3 g/dL (6.4-8.9)
[2017-10-24 08:17] VITALS: BP 123/67
[2017-10-24] MEDS: Magnesium Chloride EC TAB* 64 MG PO SCH (08:24)
[2017-10-24] MEDS: Aspirin EC Low Dose* 81 MG TAB.EC PO SCH (08:25)
[2017-10-24] MEDS ORDERED: Spironolactone TAB* 25 MG PO SCH (09:00)
--- NOTE | 2017-10-25 04:37 | DS ---
CC: Dr. River * DISCHARGE SUMMARY: DATE OF ADMISSION: 10/20/17 DATE OF DISCHARGE: 10/24/17 DISCHARGE DIAGNOSES: 1. Fall with orbital fracture, rib contusion. 2. Right heart failure. 3. Chronic atrial fibrillation with slow heart rate. 4. Diarrhea secondary to MiraLAX. 5. Hypercalcemia likely due to hydrochlorothiazide. 6. Thrombocytopenia, chronic. 7. Anemia of chronic disease. 8. Elevated creatinine likely due to iodinated contrast. 9. Insomnia. 10. Bleeding from rectum likely due to diarrhea. 11. History of hyperthyroidism, status post radioiodine treatment and subsequent hypothyroidism. 12. History of breast cancer, status post mastectomy in 1992. 13. History of chronic kidney disease with elevated baseline creatinine. HISTORY: Ludmila Wood is an 86-year-old woman with history of chronic atrial fibrillation, right heart failure due to previous Graves disease, fell hitting her left chest and head. Please see the admission note for details of the present illness, past medical history, family history, social and personal history, review of systems, and physical examination. DIAGNOSTIC STUDIES/LAB DATA: CBC, on admission: WBC 3.5, H and H 11.6/35, MCV 94, PLT 115K. CBC on 10/22/17: WBC 4.3, H and H 10.6/32, MCV 94, PLT 93K. CBC , 10/23/17: WBC 4.4, H and H 10.4/32, MCV 94, PLT 88K. CBC, 10/24/17: WBC 4.9 , H and H 10.5/31, MCV 95, PLT 82K. Chemistries on admission: Sodium 135, potassium 4.4, chloride 102, CO2 26, BUN and creatinine 37/1.19, calcium 11.3, alk phos 131. Comprehensive metabolic panel was otherwise within normal limits. TSH normal. PTH intact and normal. Chemistries prior to discharge on : Sodium 138, potassium 3.8, chloride 107, CO2 25, BUN and creatinine 39/1.55 , calcium 10.4, rest of the comprehensive metabolic panel was essentially within normal limits. BNPs on 10/22/17, 10/23/17, and 10/24/17, were 228, 269, and 266. Calciums were 11.3 on 10/20/17, 10.4 on 10/21/17, 10.6 on 10/22/17, 10.3 on 10/23/17, and 10.4 on 10/24/17. Imaging: Brain CT, on 10/20/17, showed an old lacunar infarct in the right internal capsule, probable left maxillary sinus fracture. CT of the facial bones to follow and no evidence of other intracranial abnormality. Cervical spine CT, 10/20/17, showed straightening of the cervical spine, no evidence of fracture or subluxation, [id number] cervical spondylosis. Chest, abdomen, pelvis CT, 10/20/17, showed hepatic and splenic cysts, large cardiomegaly, prominent pulmonary arteries, suspect right heart failure. No CT evidence of traumatic injury. Maxillofacial CT, 10/20/17, showed a nondisplaced fracture of the posterolateral wall of the left orbit, slightly depressed fracture of the left orbital floor, slightly depressed fracture of the left nasal bone. Abdominal ultrasound, 10/21/17, showed normal spleen, small hypoechoic lesion likely representing a cyst. Nuclear medicine scan with stress test on 10/22/17 showed no defects of a stress induced or fixed nature with normal wall motion and contractility. EKG, 10/21/17, showed atrial fibrillation with controlled ventricular response, right bundle branch block, no change since the previous record. This was an EKG done on 10/21/17. Transthoracic echocardiogram, on 10/21/17, showed EF 55% to 60%, severe left atrial dilatation. Right ventricle was severely dilated with reduced right ventricular systolic function. There was decrease in RV function since echo of 01/07/15. There was also dilatation of the right atrium. Mild mitral regurgitation, severe tricuspid regurgitation were noted. There was mild dilatation of the ascending aorta. CONSULTATIONS: Cardiology: 10/21/17, Dr. Mariano River. He felt that he was not sure why she had fallen. He also noted other lightheadedness with exertion. He also felt it is possible that she had low normal blood pressures with a combination of a low heart rate, RV failure, and dehydration contributing to her lightheadedness. RV dysfunction can predispose to low preload, low output, and hypotension. It was unclear whether these factors played a role in her fall or not. It was not clear that a pacemaker would help. He recommended cutting back on diuretics because of her low blood pressures, repeating her echocardiogram, performing a stress test. He felt that if her symptoms were related to RV failure, then she will need to restrict her activities to avoid hypotension and hypoperfusion with exercise. He did not rule out a pacemaker. He discussed anticoagulation with her which she preferred to avoid except for aspirin. He felt that if she did not improve that he would consider an event monitor as an outpatient. The stress test is not in the system yet, but he reported that it showed hypotension and pulse in the 80s with low level exertion. HOSPITAL COURSE: The patient was admitted and the following day was placed on telemetry. Her hydrochlorothiazide was held because of her hypercalcemia. She received a liter of normal saline and then her calcium was repeated and it did come down. The following day, she was monitored on telemetry. She complained of rib pain while she was in the hospital. She did not appear to have a fracture. It hurt her getting up and down, change in position. She received Tylenol for this. Tramadol was ordered, but she only took it once on 10/21/17. I discussed her orbital fracture with Dr. Ramirez, who agreed with IV antibiotics and she received these. It seems that she does not need to be discharged on them as she did not have any displacement of the fracture and in reviewing the literature, it seems that it is not clearly proven that they are beneficial, but a short course is reasonable. She continued on her baby aspirin. Her diuretics were adjusted downward. Her weights were reported as being 195 on admission, not clear if this was a reported weight on actual measurements. Weights on 10/21/17 were 200 pounds and 9.6 ounces, and on 10/24/17, 198 pounds 8 ounces. So, it seems that she is at least not gaining weight on the lower doses of diuretics, although she did not eat much while she was in the hospital. She had I's and O's that were inconsistently done. She became constipated and she was given MiraLAX and had probably got too much because she then got diarrhea and was incontinent of stool. She was seen by Case Management and we are obtaining rolling walker and a shower chair for her prior to discharge. She was seen by Physical Therapy and the physical therapist on felt that weight was limiting mobility. She felt that she would benefit from physical therapy at home and we will order a physical therapist to evaluate her in her home as well. She also had an inpatient occupational therapy evaluation and she recommended a tub transfer bench and therapeutic exercise. At the time of discharge, the patient was feeling tired. She had not slept well because of the SCDs that she wore during her hospitalization. We discussed sleep because she had not been sleeping well at home either. She was seen with her daughter, Eulalia. PHYSICAL EXAMINATION: Vital Signs: Blood pressure 123/67, pulse 65, respirations 16, temperature 97.6, and O2 sat 94%. She had periorbital ecchymosis on the left. Chest was clear. Heart was irregularly irregular. Abdomen was soft and nontender. On rectal exam, she had perianal erythema. Stool was brown, not bloody, guaiac pending. It was felt that she could be discharged on adjusted diuretic. She will need to do daily weights. She is to not take more laxatives. She will be following up with Dr. Ramirez for her orbital fracture and will follow her anemia and thrombocytopenia. She was told at home to not look at the computer or watch television for 2 hours before bed. At the time of discharge, she is to be on a regular diet. Activities as tolerated. She is to use a rolling walker. She is getting a prescription for Rollator. She is to weigh herself daily, notify MD if weight goes greater than 4 pounds over baseline which is her weight before breakfast tomorrow. She is to have labs done with her followup appointment, CBC, ferritin, BNP, BMP in about 8 to 10 days. CURRENT MEDICATIONS: 1. Spironolactone 25 mg once a day. 2. Furosemide 20 mg every other day. 3. Slow-Mag twice a day. 4. Levothyroxine 75 mcg once a day. 5. Aspirin 81 mg daily. 6. Tylenol 650 every 4 hours as needed for pain. She is to see Dr. Ramirez next week. I left his number with her. She is to see me in 8 to 10 days. She also has a visiting nurse service for skilled care, home health aide, physical therapy, and equipments as well as Rollator and shower chair. [id number]/[facility] #: [id number] [facility]
== END 2017-10-24 14:29 | disposition home health service (06) | DRG 125 ==
LOC: ED 21:44 → MEDTELE 10-21 04:23 → OBSVTOIN 10-23 09:31
PROVIDERS: ADMIT Internal Medicine; ATTEND Internal Medicine Geriatric Medicine
DX: S02.32XA Fracture of orbital floor, left side, initial encounter for closed fracture (principal); K52.1 Toxic gastroenteritis and colitis; D69.6 Thrombocytopenia, unspecified; I48.0 Paroxysmal atrial fibrillation; N18.3 Chronic kidney disease, stage 3 (moderate); E83.52 Hypercalcemia; D73.4 Cyst of spleen; I50.812 Chronic right heart failure; I08.1 Rheumatic disorders of both mitral and tricuspid valves; I13.0 Hypertensive heart and chronic kidney disease with heart failure and stage 1 through stage 4 chronic kidney disease, or unspecified chronic kidney disease; K62.5 Hemorrhage of anus and rectum; W01.0XXA Fall on same level from slipping, tripping and stumbling without subsequent striking against object, initial encounter; Y92.480 Sidewalk as the place of occurrence of the external cause; Z88.5 Allergy status to narcotic agent; Z88.8 Allergy status to other drugs, medicaments and biological substances; Z90.10 Acquired absence of unspecified breast and nipple; Z83.49 Family history of other endocrine, nutritional and metabolic diseases; E03.9 Hypothyroidism, unspecified; E78.5 Hyperlipidemia, unspecified; Z82.49 Family history of ischemic heart disease and other diseases of the circulatory system; Z82.3 Family history of stroke; Z66 Do not resuscitate; Z87.891 Personal history of nicotine dependence; S20.212A Contusion of left front wall of thorax, initial encounter; D64.9 Anemia, unspecified; I48.2 Chronic atrial fibrillation; T47.4X5A Adverse effect of other laxatives, initial encounter; Y92.239 Unspecified place in hospital as the place of occurrence of the external cause; T50.2X5A Adverse effect of carbonic-anhydrase inhibitors, benzothiadiazides and other diuretics, initial encounter; D63.8 Anemia in other chronic diseases classified elsewhere; Z85.3 Personal history of malignant neoplasm of breast; G47.00 Insomnia, unspecified; M47.9 Spondylosis, unspecified; K76.89 Other specified diseases of liver; S02.2XXA Fracture of nasal bones, initial encounter for closed fracture; I77.819 Aortic ectasia, unspecified site; K59.00 Constipation, unspecified; R15.9 Full incontinence of feces; Z79.82 Long term (current) use of aspirin
CPT/HCPCS: 36415; 70450; 70486; 71260; 72125; 74177; 76705; 78452; 80048; 80053; 82272; 82310; 82330; 83735; 83880; 83970; 84443; 85025; 85027; 93005; 93017; 93306; A9270-GY; A9502; C8929; G0378; G8978-GP-CJ; G8979-GP-CH; G8980-GP-CH; G8987-GO-CK; G8988-GO-CI; G8989-GO-CI; J0280; J2270; J2405; J2543; J2785; Q9967

== ENCOUNTER 2017-11-02 10:31 | Emergency (ER) | payer MEDICARE ==
--- NOTE | 2017-11-02 11:54 | RAD ---
Indication: Shortness of breath. 2 views of the chest demonstrate no mediastinal shift. This cardiomegaly. Lung daigle appear hyperinflated. When compared to previous exam of January 06, 2011 small left pleural effusion is noted. IMPRESSION: Cardiomegaly. Small left pleural effusion is noted.
[2017-11-02 12:34] LABS: ABS Basophils 0 10^3/ul (0-0.2); ABS Eosinophils 0.1 10^3/ul (0-0.6); ABS Lymphocytes 0.5 10^3/ul (1.0-4.8); ABS Monocytes 0.7 10^3/ul (0-0.8); ABS Neutrophils 3.6 10^3/ul (1.5-7.7); ABS Nucleated RBC 0.02 10^3/ul; Eosinophil % 1.4 % (0-6); Hematocrit 32 % (35-47); Hemoglobin 10.7 g/dl (12.0-16.0); Lymphocyte % 10.4 % (25-47); Mean Corpuscular HGB Conc 33 g/dl (31-36); Mean Corpuscular Hemoglobin 31 pg (27-31); Mean Corpuscular Volume 93 fL (80-97); Mean Platelet Volume 10 um3 (7.4-10.4); Nucleated Red Blood Cells % 0.4; Platelet Count 103 10^3/ul (150-450); Red Blood Count 3.46 10^6/ul (4.0-5.4); Red Cell Distribution Width 17 % (10.5-15); White Blood Count 4.9 10^3/ul (3.5-10.8)
[2017-11-02 12:49] LABS: EGFR Non-African American 46.5 (>60)
[2017-11-02] MEDS ORDERED: Furosemide IV* 10 MG/ML 10 ML VIAL (100 MG) IV ONE (15:09)
[2017-11-02 16:58] VITALS: BP 104/47
--- NOTE | 2017-11-02 18:10 | ED ---
Daisy Fuentes Gabriel, scribed for Delon Amaya MD on 11/02/17 at 1448 . Shortness of Breath - HPI Summary HPI Summary: This patient is a 86 year old F presenting to [facility] accompanied by family with a chief complaint of SOB since yesterday. Patient reports difficulty walking due to edema, difficulty sleeping, weakness, anxiety, PETER, and cramping. Patient fell on 10/22/17 and was admitted for several days. She takes diuretics and has her dosage reduced and states she has gained 8 pounds since. Patient has been massaging herself at night to help her get to sleep with no relief. She states she gets leg cramps when she sits up. Additionally she states she gets a pain in her heart about every hour and believes it was due the fluid buildup. - History of Current Complaint Chief Complaint: EDShortnessOfBreath Time Seen by Provider: 11/02/17 14:40 Hx Obtained From: Patient, Family/[employer] Onset/Duration: Lasting Days - 1, Still Present Timing: Constant Current Severity: Mild Associated Signs & Symptoms: Edema - Allergy/Home Medications Allergies/Adverse Reactions: Allergies Allergy/AdvReac Type Severity Reaction Status Date / Time Amitriptyline [From Elavil] Allergy Rash Verified 10/20/17 21:52 Codeine Allergy Rash And Verified 10/20/17 21:52 Itching Paroxetine [From Paxil] Allergy Rash Verified 10/20/17 21:52 PMH/Surg Hx/FS Hx/Imm Hx Previously Healthy: No Endocrine/Hematology History: Reports: Hx Thyroid Disease Denies: Hx Diabetes Cardiovascular History: Reports: Hx Atrial Fibrillation, Hx Valvular Heart Disease Denies: Hx Angina, Hx Coronary Artery Disease, Hx Hypercholesterolemia, Hx Hypertension, Hx Myocardial Infarction Comment Only: Other Cardiovascular Problems/Disorders - Leaky tricuspid valve , a-fib. Respiratory History: Denies: Hx Asthma, Hx Chronic Obstructive Pulmonary Disease (COPD) History: Denies: Hx Dialysis, Hx Renal Disease Sensory History: Reports: Hx Hearing Aid Denies: Hx Contacts or Glasses, Hx Deafness Opthamlomology History: Denies: Hx Contacts or Glasses Neurological History: Denies: Hx CVA - Cancer History Cancer Type, Location and Year: BREAST - Surgical History Surgery Procedure, Year, and Place: mastectomy 1993 Infectious Disease History: No Infectious Disease History: Denies: Hx Shingles, Hx Tuberculosis, Traveled Outside the [place] in Last 30 Days - Family History Known Family History: Positive: Other - Graves Negative: Cardiac Disease, Hypertension, Diabetes, Renal Disease, Respiratory Disease, Seizure Disorder - Social History Alcohol Use: None Substance Use Type: Reports: None Smoking Status (MU): Former Smoker Type: Cigarettes Amount Used/How Often: unsure Length of Time of Smoking/Using Tobacco: 6 years Have You Smoked in the Last Year: No Review of Systems Constitutional: Other - cramping, difficulty sleeping Positive: Shortness Of Breath Positive: Edema Positive: Headache, Weakness Positive: Anxious All Other Systems Reviewed And Are Negative: Yes Physical Exam - Summary Physical Exam Summary: Appearance: The patient is well-nourished in no acute distress and in no acute pain. Skin: The skin is warm and dry and skin color reflects adequate perfusion. HEENT: The head is normocephalic and atraumatic. The pupils are equal and reactive. The conjunctivae are clear and without drainage. Nares are patent and without drainage. Mouth reveals moist mucous membranes and the throat is without erythema and exudate. The external ears are intact. The ear canals are patent and without drainage. The tympanic membranes are intact. Neck: the neck is supple with full range of motion and non-tender. There are no carotid bruits. There is no neck vein distension. Respiratory: Chest is non-tender. Lungs are clear to auscultation and breath sounds are symmetrical and equal. Cardiovascular: Heart is regular rate and rhythm. There is no murmur or rub auscultated. There is peripheral edema and pulses are symmetrical and equal. Abdomen: The abdomen is soft and non-tender. There are normal bowel sounds heard in all four quadrants and there is no organomegaly palpated. Musculoskeletal: There is no back tenderness noted. Extremities are non-tender with full range of motion. There is good capillary refill. There is peripheral edema. Neurological: Patient is alert and oriented to person, place and time. The patient has symmetrical motor strength in all four extremities. Cranial nerves are grossly intact. Deep tendon reflexes are symmetrical and equal in all four extremities. Psychiatric: The patient has an appropriate affect and does not exhibit any anxiety or depression. Triage Information Reviewed: Yes Vital Signs On Initial Exam: Initial Vitals Temp Pulse Resp BP Pulse Ox 96.6 F 58 20 107/40 97 11/02/17 10:36 11/02/17 10:36 11/02/17 10:36 11/02/17 10:36 11/02/17 10:36 Vital Signs Reviewed: Yes Diagnostics - Vital Signs Vital Signs Temp Pulse Resp BP Pulse Ox 11/02/17 12:22 96.1 F 58 20 95/51 97 11/02/17 10:36 96.6 F 58 20 107/40 97 - Laboratory Lab Results: Lab Results 11/02/17 11/02/17 11/02/17 Range/Units 12:20 12:20 12:20 WBC 4.9 (3.5-10.8) 10^3/ul RBC 3.46 L (4.0-5.4) 10^6/ul Hgb 10.7 L (12.0-16.0) g/dl Hct 32 L (35-47) % MCV 93 (80-97) fL MCH 31 (27-31) pg MCHC 33 (31-36) g/dl RDW 17 H (10.5-15) % Plt Count 103 L (150-450) 10^3/ul MPV 10 (7.4-10.4) um3 Neut % (Auto) 74.0 (38-83) % Lymph % (Auto) 10.4 L (25-47) % [place] % (Auto) 13.3 H (1-9) % Eos % (Auto) 1.4 (0-6) % Baso % (Auto) 0.9 (0-2) % Absolute Neuts (auto) 3.6 (1.5-7.7) 10^3/ul Absolute Lymphs (auto) 0.5 L (1.0-4.8) 10^3/ul Absolute Monos (auto) 0.7 (0-0.8) 10^3/ul Absolute Eos (auto) 0.1 (0-0.6) 10^3/ul Absolute Basos (auto) 0 (0-0.2) 10^3/ul Absolute Nucleated RBC 0.02 10^3/ul Nucleated RBC % 0.4 Sodium 136 (133-145) mmol/L Potassium 4.8 (3.5-5.0) mmol/L Chloride 106 (101-111) mmol/L Carbon Dioxide 24 (22-32) mmol/L Anion Gap 6 (2-11) mmol/L BUN 31 H (6-24) mg/dL Creatinine 1.11 H (0.51-0.95) mg/dL Est GFR ( Amer) 59.8 (>60) Est GFR (Non-Af Amer) 46.5 (>60) BUN/Creatinine Ratio 27.9 H (8-20) Glucose 85 (70-100) mg/dL Lactic Acid (0.5-2.0) mmol/L Calcium 10.6 H (8.6-10.3) mg/dL Total Bilirubin 0.80 (0.2-1.0) mg/dL AST 37 (13-39) U/L ALT 19 (7-52) U/L Alkaline Phosphatase 129 H (34-104) U/L Troponin I 0.03 (<0.04) ng/mL B-Natriuretic Peptide 227 H ( - 100) pg/mL Total Protein 7.0 (6.4-8.9) g/dL Albumin 3.6 (3.2-5.2) g/dL Globulin 3.4 (2-4) g/dL Albumin/Globulin Ratio 1.1 (1-3) 11/02/17 11/02/17 Range/Units 12:20 14:15 WBC (3.5-10.8) 10^3/ul RBC (4.0-5.4) 10^6/ul Hgb (12.0-16.0) g/dl Hct (35-47) % MCV (80-97) fL MCH (27-31) pg MCHC (31-36) g/dl RDW (10.5-15) % Plt Count (150-450) 10^3/ul MPV (7.4-10.4) um3 Neut % (Auto) (38-83) % Lymph % (Auto) (25-47) % [place] % (Auto) (1-9) % Eos % (Auto) (0-6) % Baso % (Auto) (0-2) % Absolute Neuts (auto) (1.5-7.7) 10^3/ul Absolute Lymphs (auto) (1.0-4.8) 10^3/ul Absolute Monos (auto) (0-0.8) 10^3/ul Absolute Eos (auto) (0-0.6) 10^3/ul Absolute Basos (auto) (0-0.2) 10^3/ul Absolute Nucleated RBC 10^3/ul Nucleated RBC % Sodium (133-145) mmol/L Potassium (3.5-5.0) mmol/L Chloride (101-111) mmol/L Carbon Dioxide (22-32) mmol/L Anion Gap (2-11) mmol/L BUN (6-24) mg/dL Creatinine (0.51-0.95) mg/dL Est GFR ( Amer) (>60) Est GFR (Non-Af Amer) (>60) BUN/Creatinine Ratio (8-20) Glucose (70-100) mg/dL Lactic Acid 1.0 (0.5-2.0) mmol/L Calcium (8.6-10.3) mg/dL Total Bilirubin (0.2-1.0) mg/dL AST (13-39) U/L ALT (7-52) U/L Alkaline Phosphatase (34-104) U/L Troponin I 0.03 (<0.04) ng/mL B-Natriuretic Peptide ( - 100) pg/mL Total Protein (6.4-8.9) g/dL Albumin (3.2-5.2) g/dL Globulin (2-4) g/dL Albumin/Globulin Ratio (1-3) Result Diagrams: 11/02/17 12:20 11/02/17 12:20 Lab Statement: Any lab studies that have been ordered have been reviewed, and results considered in the medical decision making process. Course/Dx - Course Course Of Treatment: Ms. Wood presentes today C/O increased weight gain and peripheral edema with trouble sleeping. She does indeed have a lot of peripheral edema but her trouble sleeping does not seem to be due to SOB with lying flat but rather feeliing nervous and 'twitchy' when she tries to go to sleep. Her BNP is not elevated much and her W/U is otherwise negative. I spoke with Dr. Carpenter and we will increase her diuretics and I will give her some trazodone to help her sleep. She will F/U on Wednesday with Dr. Carpenter. - Diagnoses Provider Diagnoses: Peripheral edema, Insomnia - Physician Notifications Discussed Care of Patient With: Shy Carpenter Time Discussed With Above Provider: 15:47 Instructed by Provider To: Other - We discussed patient care with Dr. Carpenter and she recommended the patient double up on her spironolactone and other medication changes. Discharge - Discharge Plan Condition: Stable Disposition: HOME Prescriptions: traZODone TAB* [Desyrel TAB*] 50 mg PO BEDTIME #20 tab Patient Education Materials: Trazodone (By mouth), Leg Edema (ED) Referrals: Shy Carpenter MD [Primary Care Provider] - 3 Days Additional Instructions: RETURN TO THE EMERGENCY DEPARTMENT FOR CHANGING OR WORSENING SYMPTOMS. The documentation as recorded by the Daisy rose Gabriel accurately reflects the service I personally performed and the decisions made by me, Delon Amaya MD.
== END 2017-11-02 16:59 | disposition home or self-care (01) ==
LOC: ED 10:31
DX: R60.0 Localized edema (principal); G47.00 Insomnia, unspecified; Z87.891 Personal history of nicotine dependence; I48.91 Unspecified atrial fibrillation; E07.9 Disorder of thyroid, unspecified
CPT/HCPCS: 36415; 71020; 80053; 83605; 83880; 84484; 85025; 93005; 96374; 99283; J1940

== ENCOUNTER 2017-11-06 06:22 | Inpatient (IN) | payer MEDICARE ==
[2017-11-06 07:04] LABS: ABS Basophils 0.1 10^3/ul (0-0.2); ABS Eosinophils 0.1 10^3/ul (0-0.6); ABS Lymphocytes 0.3 10^3/ul (1.0-4.8); ABS Monocytes 0.5 10^3/ul (0-0.8); ABS Neutrophils 5.3 10^3/ul (1.5-7.7); ABS Nucleated RBC 0.01 10^3/ul; Hematocrit 32 % (35-47); Hemoglobin 10.7 g/dl (12.0-16.0); Lymphocyte % 4.9 % (25-47); Mean Corpuscular HGB Conc 33 g/dl (31-36); Mean Corpuscular Hemoglobin 31 pg (27-31); Mean Corpuscular Volume 92 fL (80-97); Mean Platelet Volume 10 um3 (7.4-10.4); Nucleated Red Blood Cells % 0.1; Red Blood Count 3.49 10^6/ul (4.0-5.4); Red Cell Distribution Width 17 % (10.5-15); White Blood Count 6.2 10^3/ul (3.5-10.8)
[2017-11-06 07:06] LABS: Platelet Count 93 10^3/ul (150-450)
[2017-11-06 07:18] LABS: EGFR Non-African American 38.1 (>60)
[2017-11-06] MEDS ORDERED: Albuterol/Ipratropium NEB.SOL* Albuterol 2.5 MG/Ipratropium 0.5 MG 3 ML INH ONE (07:35)
--- NOTE | 2017-11-06 08:35 | RAD ---
INDICATION: Cough x2 days COMPARISON: Similar chest x-ray November 02, 2017 TECHNIQUE: Single AP portable view of the chest was obtained. FINDINGS: Image quality is compromised due to the relative inferiority of a portable chest x-ray. The heart is enlarged. There is coarse atherosclerotic calcification overlying the arch of the aorta. The pulmonary vasculature is mildly engorged and indistinct. There is bilateral costophrenic angle blunting with density obscuring the left hemidiaphragm. Visualized bones are normal for the patient's age. IMPRESSION: In the correct clinical setting the chest x-ray findings are most consistent with cardiogenic pulmonary edema with a likely left greater than right pleural effusion.
[2017-11-06] MEDS ORDERED: Furosemide IV* 10 MG/ML VIAL (40 MG) IV ONE (09:22)
[2017-11-06] MEDS ORDERED: Spironolactone TAB* 25 MG PO SCH (11:00)
[2017-11-06] MEDS: Aspirin Low Dose CHEW TAB* 81 MG PO SCH (12:43)
[2017-11-06] MEDS ORDERED: Bumetanide IV* 0.25 MG/ML 4 ML VIAL IV ONE (14:10)
--- NOTE | 2017-11-06 14:11 | HP ---
HISTORY AND PHYSICAL: DATE OF ADMISSION: 11/06/17 HISTORY OF PRESENT ILLNESS: Ludmila Wood is an 86-year-old woman admitted with shortness of breath and cough. The patient has known right heart failure. The patient was admitted here recently after having fallen 10/20/2017. She had a left orbital fracture and left chest wall contusion. During that admission, (10/20/17 - 10/24/17), she was felt to have right heart failure in the setting of known right heart failure due to previous Graves disease, tricuspid insufficiency. She was seen in consultation by of Cardiology who felt that her diuretics should be cut back because of low blood pressure and decreased cardiac output with right heart failure. On admission she had been on furosemide 20 mg alternating with 40 mg daily, hydrochlorothiazide 25 mg daily, and spironolactone 25 mg twice daily. At the time of discharge, she was discharged on furosemide 20 mg daily, spironolactone 25 mg daily and no hydrochlorothiazide. After discharge, she was spoken to on 10/28/17, at which time she said that she had gained 2 pounds. Her breathing was okay. She came in for a followup on 10/2217. Her daughter was concerned about slurred speech on occasion, increased edema, not sleeping well. She had edema, labs were done. BNP was 169. She had anemia and low normal ferritin. Her daughter called again on 11/02/17, saying that she was short of breath and dizzy. They had spoken with Dr. Kapoor on 11/01/17 and he had increased her furosemide to 40 mg, which did not seem to make much of a difference. Because of shortness of breath, she was advised to go back to the emergency room. She was seen in the emergency room on 11/02/17. During that visit, her BNP was 227. She was given IV diuretics. Her diuretics were then increased to spironolactone 50 mg daily and furosemide 40 mg daily. She felt somewhat better the following day. When seen yesterday, she had gained additional weight. Her weight was up to 209 pounds, which was 2 pounds up from the previous day. Her weight had been 193 pounds on 08/17/17. Because of intermittent slurred speech and a history of fairly recent head injury, she was sent for a CT scan of the brain, which showed no acute findings. Her night was very bad, she felt short of breath and was coughing quite a bit and for that reason she is being admitted at this time. She also did not respond to an increased dose of diuretics that was recommended last night, which was to take 2 additional furosemide, 2 spironolactone and 1 hydrochlorothiazide with the instructions that she was to have increased her spironolactone to 3 per day with 2 furosemide and 1 hydrochlorothiazide daily thereafter. PAST MEDICAL HISTORY: Significant for the following medical problems: 1. 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 Hypothyroidism after treatment for Graves disease. 2. History of chronic atrial fibrillation for which she has refused anticoagulation. 3. Chronic thrombocytopenia. 4. History of breast cancer, status post right mastectomy. 5. Hyperlipidemia. 6. Right bundle branch block. PAST SURGICAL HISTORY: Previous surgeries include right mastectomy. 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 She is status post bilateral cataract extractions. CURRENT MEDICATIONS: See above: 1. Trazodone 50 mg. She had been taking a half at bedtime in the last few days , but a quarter last night. 2. Hydrochlorothiazide 25 mg daily. 3. Spironolactone 3 daily, 2 in the morning and 1 at night. 4. Furosemide 40 mg daily (see above, these doses had just been recommended yesterday). 5. Levothyroxine 75 mcg daily. 6. Aspirin 81 mg daily. 7. Slow-Mag 2 tablets daily. 8. She also has been taking supplements, vitamins including B12, 1000 mcg/mL oral drops, 200 mcg daily. 9. Co-Q10, 1 capsule every day. 10. Gas-X 80 mg. 11. Psyllium powder. 12. Artificial Tears. ALLERGIES: 1. PAROXETINE which caused insomnia and anxiety. 2. CODEINE which caused confusion. 3. AMLODIPINE ? reaction. 4. AMITRIPTYLINE ? reaction. FAMILY HISTORY: The patient's father at 64 of an IA, mother at 86 of a CVA. She had 5 siblings. 2 of alcoholism in their 60s. One brother in his 80s of bad circulation and another brother had a coronary artery bypass surgery and was an alcoholic. Another sister had thyroid disease and osteoporosis. She had 8 children, 1 daughter has had thyroid disease, skin cancer. Two brothers had diabetes. HABITS: Caffeine 1 cup a day. EtOH occasional. Tobacco none at present, smoked 2 packs a day from ages 17 to 27. 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 She is , has since . She has several adult children in the area. REVIEW OF SYSTEMS: She has fatigue. Her appetite has been diminished. She denies fevers or sweats, but has felt chills with the present illness. She has not been sleeping well. Skin: Negative. HEENT: She wears hearing aids. Nodes: Negative. Heme: See above. Breasts: See above. Endocrine: See above. Respiratory: She has wheezing and has felt dyspnea on exertion. She has had a cough which was productive of mostly white sputum, but had some yellow sputum today. Cardiovascular: See above. She has left lateral chest pain where she had the rib contusions, but no cardiac chest pain and nuclear stress test during the last admission showed no ischemia. GI: She developed diarrhea during the last admission after getting MiraLAX. Generally she does okay if she takes psyllium seed a tablespoon per day. She has had polyps in the past. : Her daughter felt that she did not urinate much after she took the extra diuretics yesterday. TONGSMAN: Menopausal. Musculoskeletal: See above. Neuro: She said she saw big pink men while lying in the stretcher in the ER, thinks she might have been dreaming or hallucinating. PHYSICAL EXAMINATION GENERAL: She is an elderly white female with fading ecchymosis on the left side of her face, around her eye, and in no acute distress. VITAL SIGNS: Blood pressure 102/52, pulse 61, respirations 20, temperature 96.6 , and O2 sat 94% on room air. SKIN: Warm and dry. She has venous stasis changes of the right leg. HEENT: Atraumatic and normocephalic. She has proptosis. She has conjunctival injection. TMs are unremarkable. Mouth and pharynx show no pharyngeal erythema. NODES: No adenopathy. NECK: Thick, ? JVD. BREASTS: Show a right mastectomy. A detailed breast exam was not performed. CHEST: Diminished breath sounds at the bases, expiratory wheezes, no rales appreciated. HEART: Irregularly irregular without murmurs, gallops, or rubs. Pulses not palpated in feet due to edema. ABDOMEN: Soft with mild right upper quadrant tenderness. No masses or organomegaly. Bowel sounds are active. EXTREMITIES: Show 2 to 3+ pedal and lower extremity edema. NEURO: There are no gross focal or lateralizing signs. LABORATORY DATA: WBC 6.2, H and H 10.7/32, MCV 92, PLT 93,000. Chemistry: Sodium 139, potassium 4.6, chloride 107, CO2 of 27, BUN and creatinine 42/1.32, glucose 91, calcium 11.2. Rest of the comprehensive metabolic panel was abnormal with alk phos of 133, BNP 235, 25-hydroxy vitamin D of 62.3, CRP 39.51 , PTH intact 6.1. Influenza A and B were negative (nasal swab). IMAGING: EKG shows atrial fibrillation with controlled ventricular response, right bundle branch block, no change since EKG of 11/02/17. Chest x-ray shows probable pulmonary vascular congestion with left greater than right pleural effusion. IMPRESSION: The patient with worsening right heart failure in the setting of known chronic right heart failure. Dr. River had recommended cutting back on her diuretics because of low blood pressure and felt that she needed more volume. During her stress test done here, she had dropped her blood pressure when she had exerted herself. I think her edema has gotten so grave, however, at this point that I think IV diuretics will be needed to turn her around. It does seem like her right heart is failing and the hope is to get her back to her baseline prior to her fall a few weeks ago, but I have explained to the family that this is a problem that is going to be progressive and a serious problem. With regards to her elevated calcium, I am concerned that she has a normal PTH, but in the setting of an elevated calcium, her PTH probably should be lower. This may have been exacerbated by using thiazide diuretics. I will follow along and may consider further workup of this. I want to keep in mind that we might want to look into the question about DVT and pulmonary emboli. I will check a D-dimer and expecting it to be positive. If positive, we will get vascular studies on her lower extremities as the first step. There is also a possibility of infection and we will get a CRP, consider further testing, treatment of any possible infection. She is Do Not Resuscitate and has a MOLST form. This was updated. DVT prophylaxis will be done with heparin subcutaneously. [id number]/CPS #: [id number] MTDD
[2017-11-06] MEDS: Heparin VIAL(*) 5000 UNITS/ML VIAL (FIVE THOUSAND) SUBCUT SCH ×2 (14:40→21:35)
--- NOTE | 2017-11-06 17:10 | ED ---
Nikita Fuentes Natalie, scribed for Delon Amaya MD on 11/06/17 at 0736 . Shortness of Breath - HPI Summary HPI Summary: The pt is an 86 y/o F presenting to the ED c/o SOB starting this morning when she woke up. She was in the ED recently and was given sleeping medication. The sleeping medication helped her sleep for 14 hours when taking a whole pill, but taking only a quarter, as directed by Dr. Shy Carpenter yesterday, did not allow her to sleep last night. Pt additionally c/o productive cough, wheezing, loss of sleep, and confusion. The pt does not use any breathing treatments at home. - History of Current Complaint Chief Complaint: EDShortnessOfBreath Time Seen by Provider: 11/06/17 07:16 Hx Obtained From: Patient Onset/Duration: Lasting Days, Still Present Current Severity: Moderate Aggrevating Factors: Nothing Alleviating Factors: Nothing Associated Signs & Symptoms: Cough (Productive), Wheezing - Allergy/Home Medications Allergies/Adverse Reactions: Allergies Allergy/AdvReac Type Severity Reaction Status Date / Time Amitriptyline [From Elavil] Allergy Rash Verified 11/06/17 06:28 Codeine Allergy Rash And Verified 11/06/17 06:28 Itching Morphine Allergy GI Upset Verified 11/06/17 14:35 Paroxetine [From Paxil] Allergy Rash Verified 11/06/17 06:28 Home Medications: Home Medications Spironolactone [Aldactone 25 MG-] 25 mg PO 1600 11/06/17 [History Confirmed ] traZODone TAB* [Desyrel TAB*] 25 mg PO BEDTIME 11/06/17 [History Confirmed 11/06] PMH/Surg Hx/FS Hx/Imm Hx Previously Healthy: No Endocrine/Hematology History: Reports: Hx Thyroid Disease Denies: Hx Diabetes Cardiovascular History: Reports: Hx Atrial Fibrillation, Hx Valvular Heart Disease Denies: Hx Angina, Hx Coronary Artery Disease, Hx Hypercholesterolemia, Hx Hypertension, Hx Myocardial Infarction Comment Only: Other Cardiovascular Problems/Disorders - Leaky tricuspid valve , a-fib. Respiratory History: Denies: Hx Asthma, Hx Chronic Obstructive Pulmonary Disease (COPD) History: Denies: Hx Dialysis, Hx Renal Disease Sensory History: Reports: Hx Hearing Aid Denies: Hx Contacts or Glasses, Hx Deafness Opthamlomology History: Denies: Hx Contacts or Glasses Neurological History: Denies: Hx CVA - Cancer History Cancer Type, Location and Year: BREAST - Surgical History Surgery Procedure, Year, and Place: mastectomy 1992 Infectious Disease History: No Infectious Disease History: Denies: Hx Shingles, Hx Tuberculosis, Traveled Outside the [place] in Last 30 Days - Family History Known Family History: Positive: Other - Graves Negative: Cardiac Disease, Hypertension, Diabetes, Renal Disease, Respiratory Disease, Seizure Disorder - Social History Alcohol Use: None Substance Use Type: Reports: None Smoking Status (MU): Former Smoker Type: Cigarettes Amount Used/How Often: unsure Length of Time of Smoking/Using Tobacco: 6 years Have You Smoked in the Last Year: No Review of Systems Negative: Fever Positive: Shortness Of Breath, Cough - productive Neurological: Other - sleep loss, confusion All Other Systems Reviewed And Are Negative: Yes Physical Exam - Summary Physical Exam Summary: Appearance: The patient is well-nourished in no acute distress and in no acute pain. Skin: The skin is warm and dry and skin color reflects adequate perfusion. HEENT: The head is normocephalic and atraumatic. The pupils are equal and reactive. The conjunctivae are clear and without drainage. Nares are patent and without drainage. Mouth reveals moist mucous membranes and the throat is without erythema and exudate. The external ears are intact. The ear canals are patent and without drainage. The tympanic membranes are intact. Neck: The neck is supple with full range of motion and non-tender. There are no carotid bruits. There is no neck vein distension. Respiratory: Chest is non-tender. Breath sounds are symmetrical and equal. The patient has expiratory wheezes. Cardiovascular: Heart is regular rate and rhythm. There is no murmur or rub auscultated. There is no peripheral edema and pulses are symmetrical and equal. Abdomen: The abdomen is soft and non-tender. There are normal bowel sounds heard in all four quadrants and there is no organomegaly palpated. Musculoskeletal: There is no back tenderness noted. Extremities are non-tender with full range of motion. There is good capillary refill. There is no calf tenderness elicited. The patient has peripheral edema. Neurological: Patient is alert and oriented to person, place and time. The patient has symmetrical motor strength in all four extremities. Cranial nerves are grossly intact. Deep tendon reflexes are symmetrical and equal in all four extremities. Psychiatric: The patient has an appropriate affect and does not exhibit any anxiety or depression. Triage Information Reviewed: Yes Vital Signs On Initial Exam: Initial Vitals Temp Pulse Resp BP Pulse Ox 96.6 F 66 18 117/99 95 11/06/17 06:22 11/06/17 06:22 11/06/17 06:22 11/06/17 06:22 11/06/17 06:22 Vital Signs Reviewed: Yes - [place] Coma Scale Coma Scale Total: 15 Diagnostics - Vital Signs Vital Signs Temp Pulse Resp BP Pulse Ox 11/06/17 06:54 20 11/06/17 06:22 96.6 F 66 18 117/99 95 - Laboratory Lab Results: Lab Results 11/06/17 11/06/17 11/06/17 Range/Units 06:37 06:37 06:37 WBC 6.2 (3.5-10.8) 10^3/ul RBC 3.49 L (4.0-5.4) 10^6/ul Hgb 10.7 L (12.0-16.0) g/dl Hct 32 L (35-47) % MCV 92 (80-97) fL MCH 31 (27-31) pg MCHC 33 (31-36) g/dl RDW 17 H (10.5-15) % Plt Count 93 L (150-450) 10^3/ul MPV 10 (7.4-10.4) um3 Neut % (Auto) 84.3 H (38-83) % Lymph % (Auto) 4.9 L (25-47) % [place] % (Auto) 7.9 (1-9) % Eos % (Auto) 2.0 (0-6) % Baso % (Auto) 0.9 (0-2) % Absolute Neuts (auto) 5.3 (1.5-7.7) 10^3/ul Absolute Lymphs (auto) 0.3 L (1.0-4.8) 10^3/ul Absolute Monos (auto) 0.5 (0-0.8) 10^3/ul Absolute Eos (auto) 0.1 (0-0.6) 10^3/ul Absolute Basos (auto) 0.1 (0-0.2) 10^3/ul Absolute Nucleated RBC 0.01 10^3/ul Nucleated RBC % 0.1 Sodium 139 (133-145) mmol/L Potassium 4.6 (3.5-5.0) mmol/L Chloride 107 (101-111) mmol/L Carbon Dioxide 27 (22-32) mmol/L Anion Gap 5 (2-11) mmol/L BUN 42 H (6-24) mg/dL Creatinine 1.32 H (0.51-0.95) mg/dL Est GFR ( Amer) 49.0 (>60) Est GFR (Non-Af Amer) 38.1 (>60) BUN/Creatinine Ratio 31.8 H (8-20) Glucose 91 (70-100) mg/dL Lactic Acid (0.5-2.0) mmol/L Calcium 11.2 H (8.6-10.3) mg/dL Total Bilirubin 0.80 (0.2-1.0) mg/dL AST 36 (13-39) U/L ALT 19 (7-52) U/L Alkaline Phosphatase 133 H (34-104) U/L Troponin I 0.03 (<0.04) ng/mL B-Natriuretic Peptide 235 H ( - 100) pg/mL Total Protein 6.9 (6.4-8.9) g/dL Albumin 3.5 (3.2-5.2) g/dL Globulin 3.4 (2-4) g/dL Albumin/Globulin Ratio 1.0 (1-3) 11/06/ Range/Units 06:37 WBC (3.5-10.8) 10^3/ul RBC (4.0-5.4) 10^6/ul Hgb (12.0-16.0) g/dl Hct (35-47) % MCV (80-97) fL MCH (27-31) pg MCHC (31-36) g/dl RDW (10.5-15) % Plt Count (150-450) 10^3/ul MPV (7.4-10.4) um3 Neut % (Auto) (38-83) % Lymph % (Auto) (25-47) % [place] % (Auto) (1-9) % Eos % (Auto) (0-6) % Baso % (Auto) (0-2) % Absolute Neuts (auto) (1.5-7.7) 10^3/ul Absolute Lymphs (auto) (1.0-4.8) 10^3/ul Absolute Monos (auto) (0-0.8) 10^3/ul Absolute Eos (auto) (0-0.6) 10^3/ul Absolute Basos (auto) (0-0.2) 10^3/ul Absolute Nucleated RBC 10^3/ul Nucleated RBC % Sodium (133-145) mmol/L Potassium (3.5-5.0) mmol/L Chloride (101-111) mmol/L Carbon Dioxide (22-32) mmol/L Anion Gap (2-11) mmol/L BUN (6-24) mg/dL Creatinine (0.51-0.95) mg/dL Est GFR ( Amer) (>60) Est GFR (Non-Af Amer) (>60) BUN/Creatinine Ratio (8-20) Glucose (70-100) mg/dL Lactic Acid 0.9 (0.5-2.0) mmol/L Calcium (8.6-10.3) mg/dL Total Bilirubin (0.2-1.0) mg/dL AST (13-39) U/L ALT (7-52) U/L Alkaline Phosphatase (34-104) U/L Troponin I (<0.04) ng/mL B-Natriuretic Peptide ( - 100) pg/mL Total Protein (6.4-8.9) g/dL Albumin (3.2-5.2) g/dL Globulin (2-4) g/dL Albumin/Globulin Ratio (1-3) Result Diagrams: 11/06/17 06:37 11/06/17 06:37 Lab Statement: Any lab studies that have been ordered have been reviewed, and results considered in the medical decision making process. - Radiology CXR Xray Interpretation: Positive (See Comments) - In the correct clinical setting the chest x-ray findings are most consistent with cardiogenic pulmonary edema with a likely left greater than right pleural effusion. ED physician has reviewed this report. Radiology Interpretation Completed By: Radiologist - EKG 06:36 Cardiac Rate: NL EKG Rhythm: Sinus Rhythm - 60 BPM EKG Interpretation: RBBB. Course/Dx - Course Course Of Treatment: Ms. Wood returns today feeling worse. She was unable to sleep last night secondary to a persistent cough. She has a little wheezing today and her CXR does show mild pulmonary edema. Dr. Carpenter is admitting her to the hospital. - Diagnoses Provider Diagnoses: Pulmonary edema - Physician Notifications Discussed Care of Patient With: Dr. Carpenter Discharge - Discharge Plan Condition: Stable Disposition: ADMITTED TO [facility] documentation as recorded by the Nikita rose Natalie accurately reflects the service I personally performed and the decisions made by me, Delon Amaya MD.
[2017-11-06] MEDS: Spironolactone TAB* 25 MG PO SCH (19:50)
[2017-11-06] MEDS ORDERED: Furosemide IV* 10 MG/ML VIAL (40 MG) IV SCH (21:00)
[2017-11-07] MEDS: Acetaminophen TAB* 325 MG PO PRN ×2 (02:30→07:57)
[2017-11-07] MEDS: Heparin VIAL(*) 5000 UNITS/ML VIAL (FIVE THOUSAND) SUBCUT SCH ×3 (05:27→20:58)
[2017-11-07 06:30] LABS: EGFR Non-African American 31.9 (>60)
[2017-11-07] MEDS: Spironolactone TAB* 25 MG PO SCH ×2 (07:57→20:31)
[2017-11-07] MEDS: Aspirin Low Dose CHEW TAB* 81 MG PO SCH (07:57)
[2017-11-07] MEDS ORDERED: Bumetanide IV* 0.25 MG/ML 4 ML VIAL IV SCH (08:00)
[2017-11-07] MEDS: cefTRIAXone* 1 GM in NS 0.9% 50 ML BAG IVPB SCH (10:56)
[2017-11-07] MEDS ORDERED: Bumetanide IV* 0.25 MG/ML 4 ML VIAL SLOW PUSH ONE (11:00)
[2017-11-07] MEDS ORDERED: Azithromycin IV(*) 500 MG in D5W 250 ML BAG IVPB SCH (12:00)
[2017-11-07] MEDS: Albuterol/Ipratropium NEB.SOL* Albuterol 2.5 MG/Ipratropium 0.5 MG 3 ML INH PRN (13:56)
[2017-11-07] MEDS ORDERED: Zosyn 3.375 gm X 1 dose, then dose per Pharmacy IVPB ONE ×2 (16:00)
[2017-11-07] MEDS: Bumetanide IV* 0.25 MG/ML 4 ML VIAL IV SCH (20:30)
[2017-11-07] MEDS: ZOSYN 3.375 GM Q8H per EXTENDED INFUSION IVPB SCH ×2 (20:30)
[2017-11-08] MEDS: ZOSYN 3.375 GM Q8H per EXTENDED INFUSION IVPB SCH ×6 (04:31→20:19)
[2017-11-08 05:50] LABS: ABS Basophils 0 10^3/ul (0-0.2); ABS Eosinophils 0.1 10^3/ul (0-0.6); ABS Lymphocytes 0.6 10^3/ul (1.0-4.8); ABS Monocytes 0.7 10^3/ul (0-0.8); ABS Nucleated RBC 0.02 10^3/ul; Eosinophil % 1.8 % (0-6); Hematocrit 29 % (35-47); Hemoglobin 9.8 g/dl (12.0-16.0); Lymphocyte % 10.3 % (25-47); Mean Corpuscular HGB Conc 34 g/dl (31-36); Mean Corpuscular Hemoglobin 31 pg (27-31); Mean Corpuscular Volume 91 fL (80-97); Mean Platelet Volume 11 um3 (7.4-10.4); Nucleated Red Blood Cells % 0.4; Red Blood Count 3.19 10^6/ul (4.0-5.4); Red Cell Distribution Width 17 % (10.5-15); White Blood Count 5.4 10^3/ul (3.5-10.8)
[2017-11-08 05:52] LABS: Platelet Count 73 10^3/ul (150-450)
[2017-11-08] MEDS: Heparin VIAL(*) 5000 UNITS/ML VIAL (FIVE THOUSAND) SUBCUT SCH ×3 (05:56→20:33)
[2017-11-08 06:01] LABS: EGFR Non-African American 25.9 (>60)
[2017-11-08] MEDS: Aspirin Low Dose CHEW TAB* 81 MG PO SCH (08:22)
[2017-11-08] MEDS: Bumetanide IV* 0.25 MG/ML 4 ML VIAL IV SCH ×2 (08:22→20:43)
[2017-11-08] MEDS: Spironolactone TAB* 25 MG PO SCH ×2 (08:22→20:43)
[2017-11-08] MEDS ORDERED: Azithromycin IV(*) 500 MG in NS 0.9% 250 ML* 250 ML IVPB SCH (09:10)
[2017-11-08] MEDS: cefTRIAXone* 1 GM in NS 0.9% 50 ML BAG IVPB SCH (12:01)
[2017-11-08] MEDS: Azithromycin IV(*) 500 MG in NS 0.9% 250 ML* 250 ML IVPB SCH (13:09)
[2017-11-08] MEDS: Albuterol/Ipratropium NEB.SOL* Albuterol 2.5 MG/Ipratropium 0.5 MG 3 ML INH PRN (20:53)
[2017-11-09] MEDS: ZOSYN 3.375 GM Q8H per EXTENDED INFUSION IVPB SCH ×6 (03:05→20:13)
[2017-11-09] MEDS: Heparin VIAL(*) 5000 UNITS/ML VIAL (FIVE THOUSAND) SUBCUT SCH ×2 (05:15→12:34)
[2017-11-09 06:06] LABS: ABS Basophils 0.1 10^3/ul (0-0.2); ABS Eosinophils 0.1 10^3/ul (0-0.6); ABS Lymphocytes 0.6 10^3/ul (1.0-4.8); ABS Monocytes 0.9 10^3/ul (0-0.8); ABS Neutrophils 3.9 10^3/ul (1.5-7.7); ABS Nucleated RBC 0.02 10^3/ul; Hematocrit 28 % (35-47); Hemoglobin 9.3 g/dl (12.0-16.0); Lymphocyte % 11.1 % (25-47); Mean Corpuscular HGB Conc 33 g/dl (31-36); Mean Corpuscular Hemoglobin 31 pg (27-31); Mean Corpuscular Volume 92 fL (80-97); Mean Platelet Volume 11 um3 (7.4-10.4); Nucleated Red Blood Cells % 0.3; Red Blood Count 3.04 10^6/ul (4.0-5.4); Red Cell Distribution Width 17 % (10.5-15); White Blood Count 5.7 10^3/ul (3.5-10.8)
[2017-11-09 06:09] LABS: Platelet Count 68 10^3/ul (150-450)
[2017-11-09 06:21] LABS: EGFR Non-African American 25.9 (>60)
[2017-11-09] MEDS: Bumetanide IV* 0.25 MG/ML 4 ML VIAL IV SCH ×2 (08:24→20:11)
[2017-11-09] MEDS: Spironolactone TAB* 25 MG PO SCH ×2 (08:24→21:26)
[2017-11-09] MEDS: Aspirin Low Dose CHEW TAB* 81 MG PO SCH (08:24)
--- NOTE | 2017-11-09 10:18 | RAD ---
Indication: Cough. 2 views of the chest including dual energy PA views demonstrates no mediastinal shift. Cardiomegaly is noted. Lung daigle are clear. When compared to previous exam of November 06, 2017 no significant change is noted. IMPRESSION: Cardiomegaly with no evidence of active cardiopulmonary disease.
[2017-11-09] MEDS: cefTRIAXone* 1 GM in NS 0.9% 50 ML BAG IVPB SCH (10:40)
[2017-11-09 11:03] LABS: Hematocrit 30 % (35-47); Hemoglobin 9.8 g/dl (12.0-16.0)
[2017-11-09 11:04] LABS: INR 1.02 (0.77-1.02)
[2017-11-09] MEDS: Azithromycin IV(*) 500 MG in NS 0.9% 250 ML* 250 ML IVPB SCH (11:05)
[2017-11-09] MEDS: Pantoprazole IV* 40 MG IV SCH (17:37)
--- NOTE | 2017-11-09 22:20 | CONS ---
GASTROENTEROLOGY CONSULT: DATE OF CONSULT: 11/09/17 CONSULTING PHYSICIAN: Shy Carpenter MD REASON FOR CONSULT: Bloody stools and incontinence in a woman with right heart failure and chronic thrombocytopenia. HISTORY OF PRESENT ILLNESS: This 86-year-old woman with right heart failure in part due to tricuspid insufficiency was readmitted with failure to thrive 3 days ago. She had been hospitalized 3 weeks ago after a fall with a left orbital fracture and bruised left ribs. She went through a cardiac evaluation directed towards possible syncope. Her low blood pressure and possible orthostatic hypotension were suspect and her diuretics were discontinued or diminished. Some recurring edema occurred. During the hospital stay, she had first constipation and then diarrhea after a laxative. The diarrhea was heme positive. Her hemoglobin had been 11.6 three days before that admission and was 10.4 on admission and has slowly diminished to 9.8 as of today. Some blood had been seen on the tissue a few weeks ago. There have been no overt bleeding since then until this morning around 10, when she passed dark maroon stool. There was no hypotension. She did not complain of pain. She had 2 more of the stools around 1 p.m. and 3 to 3:30 p.m. She had been on aspirin 81 mg and cardioprotective heparin 5000 units q.8. Her mental status was also abnormal and it was noted that her electrolytes were normal, so an ammonia was checked and was a 100 and under lactulose, has diminished to 63 and now 49. PAST MEDICAL HISTORY: 1. Obesity. 2. Hypothyroidism - therapeutic - she had Grave's disease, untreated apparently for a number of years in the 60s. 3. Tricuspid insufficiency. 4. Chronic right heart failure. 5. History of colon polyps - last colonoscopy in the at [facility]. 6. Status post right mastectomy - 1992. 7. History of atrial fibrillation - slow response typically. 8. Chronic thrombocytopenia. MEDICATIONS: At home: 1. Furosemide. 2. Spironolactone. 3. Hydrochlorothiazide. 4. Magnesium chloride. 5. Aspirin 81. 6. Trazodone 25 h.s. 7. Levothyroxine 75 mcg. In the hospital here, azithromycin and ceftriaxone have been given and just 2 days ago Irmasypoonam added. SOCIAL HISTORY: She is from [place], [place] originally. Lived in [facility] and then 6 or 7 years ago was brought to [place] to live in [facility] by her daughter. She has 8 children. 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 She is DNR. REVIEW OF SYSTEMS: No history of hematemesis, prior upper endoscopy, overt liver disease, jaundice, hematuria, lacerations, chronic dermatologic disease or hip fractures. PHYSICAL EXAM: She is a chronically ill-appearing woman in bed with ecchymosis over the right orbit, left arm. She is substantially obese. Lungs have diminished breath sounds with poor effort. There is a systolic murmur along the right sternal border that is quite soft. Heart sounds are irregular. The abdomen has normal bowel sounds and is soft and without focal tenderness. Obesity precludes precision. Perianal inspection shows maroon stool staining. Digital rectal is remarkable for normal contours. Extremities showed 2+ edema right up through mid thigh. DIAGNOSTIC STUDIES/LAB DATA: Today 10 a.m., hemoglobin 9.8, hematocrit 32, white count 5.7, platelets 68. INR 1.02. BUN 60, creatinine 1.84. Albumin 2.9 , B12 (3 months ago 1350). TSH 2.74. IMPRESSION: This 86-year-old woman with right heart failure, has liver dysfunction probably on the basis of right heart failure predominantly with an unknown but probable contribution of nonalcoholic fatty liver disease. Her acute synthetic function is compromised based on the right heart failure. Source of the bleeding we are witnessing is probably lower gastrointestinal origin given the unimpressive fall in hemoglobin. Right diverticula or right- sided arteriovenous malformations are most likely. The likelihood that colonoscopy is going to be beneficial to her via therapeutic maneuver is low and for the moment would favor an empiric PPI short term and discontinuing aspirin and heparin. [id number]/[facility] #: [id number] [facility]
[2017-11-10] MEDS: ZOSYN 3.375 GM Q8H per EXTENDED INFUSION IVPB SCH ×6 (04:24→21:18)
[2017-11-10] MEDS: Pantoprazole IV* 40 MG IV SCH ×2 (04:24→19:15)
[2017-11-10 04:50] LABS: Hematocrit 27 % (35-47); Mean Corpuscular HGB Conc 34 g/dl (31-36); Mean Corpuscular Hemoglobin 31 pg (27-31); Mean Corpuscular Volume 91 fL (80-97); Mean Platelet Volume 9 um3 (7.4-10.4); Platelet Count 59 10^3/ul (150-450); Red Blood Count 2.91 10^6/ul (4.0-5.4); Red Cell Distribution Width 17 % (10.5-15); White Blood Count 5.6 10^3/ul (3.5-10.8)
[2017-11-10 05:03] LABS: EGFR Non-African American 27.9 (>60)
[2017-11-10] MEDS: Spironolactone TAB* 25 MG PO SCH ×2 (08:20→21:47)
[2017-11-10] MEDS: Bumetanide IV* 0.25 MG/ML 4 ML VIAL IV SCH (09:25)
[2017-11-10] MEDS: Torsemide TAB* 20 MG PO SCH (11:56)
[2017-11-10] MEDS: cefTRIAXone* 1 GM in NS 0.9% 50 ML BAG IVPB SCH (12:01)
[2017-11-10] MEDS: Lactobacillus Acidophilu (GG)* 1 CAP CAP PO SCH (12:02)
[2017-11-10] MEDS: Azithromycin IV(*) 500 MG in NS 0.9% 250 ML* 250 ML IVPB SCH (12:59)
[2017-11-10] MEDS ORDERED: NS 0.9% 250 ML* 250 ML IV ONE (21:00)
[2017-11-10] MEDS: Nystatin CREAM* 30 GM TOPICAL SCH (22:18)
[2017-11-10] MEDS: Triamcinolone 0.025% OINT * 15 GM TUBE TOPICAL SCH (22:18)
[2017-11-11] MEDS: ZOSYN 3.375 GM Q8H per EXTENDED INFUSION IVPB SCH ×6 (04:09→20:32)
[2017-11-11 06:43] LABS: Hematocrit 26 % (35-47); Hemoglobin 8.7 g/dl (12.0-16.0); Mean Corpuscular HGB Conc 34 g/dl (31-36); Mean Corpuscular Hemoglobin 31 pg (27-31); Mean Corpuscular Volume 92 fL (80-97); Mean Platelet Volume 10 um3 (7.4-10.4); Red Blood Count 2.81 10^6/ul (4.0-5.4); Red Cell Distribution Width 17 % (10.5-15); White Blood Count 4.2 10^3/ul (3.5-10.8)
[2017-11-11 06:46] LABS: Platelet Count 58 10^3/ul (150-450)
[2017-11-11 06:58] LABS: EGFR Non-African American 26.8 (>60)
[2017-11-11] MEDS: Torsemide TAB* 20 MG PO SCH (09:10)
[2017-11-11] MEDS: Omeprazole CAP* 20 MG PO SCH (09:10)
[2017-11-11] MEDS: Lactobacillus Acidophilu (GG)* 1 CAP CAP PO SCH (09:10)
[2017-11-11] MEDS: Spironolactone TAB* 25 MG PO SCH ×2 (09:10→20:32)
[2017-11-11] MEDS ORDERED: Azithromycin IV(*) 500 MG in D5W 250 ML BAG* 250 ML IVPB SCH (10:08)
[2017-11-11] MEDS: cefTRIAXone* 1 GM in NS 0.9% 50 ML BAG IVPB SCH (10:09)
[2017-11-11] MEDS: Azithromycin IV(*) 500 MG in NS 0.9% 250 ML* 250 ML IVPB SCH (10:46)
[2017-11-11] MEDS: Nystatin CREAM* 30 GM TOPICAL SCH ×2 (11:41→19:11)
[2017-11-11] MEDS: Triamcinolone 0.025% OINT * 15 GM TUBE TOPICAL SCH ×2 (11:42→19:11)
[2017-11-11] MEDS ORDERED: Magnesium Sulfate 2 GM IV IVPB ONE (12:00)
--- NOTE | 2017-11-11 17:48 | CONSULT ---
Palliative / Hospice Consult Ordering Provider: Shy Carpenter - Subjective Code Status: DNR Advance Directives Location: In Chart [facility]OL[facility] Part A Completed: Yes - DNR MOL[facility] Part E Completed:: Yes Date: 11/11/17 - History or Present Illness History or Present Illness: This 86 year old woman with PMH of AF (refusing anticoagulation), thrombocytopenia, breast cancer with right mastectomy, HLD, and RBBB, first had Grave's disease in the 1969's, and then apparently again in 2010, when she experienced tricuspid insufficiency and right heart failure. She has had issues with fluid balance and hypotension since that time. Her HCP and daughter reports that earlier last month she was still driving, visiting friends, shopping, doing all her own housework at her apartment at [facility], until she fell and sustained an orbital fracture and chest wall contusion in October. Since then, she has had worsening problems with fatigue, MAYER, decreased appetite, insomnia, and cough. Her weight increased 16 pounds between mid August and the end of October. Her fluids were unstable, and on cardiac stress testing her BP dropped with exertion, causing dizziness, and so her diuretics were decreased, and she became fluid overloaded. Her furosemide and spironlolactone doses were adjusted up and down a few times. Of note, she has some renal compromise with BUN/Cr of 59/1.79 and eGFR of 26.8, and she additionally developed liver decompensation (despite normal appearance of liver on CT in October) with hepatic encephalopathy, probably on the basis of her right heart failure. She was treated with lactulose, which she found very unpleasant, but her ammonia level dropped from 100 to 41. She was hospitalized here on 11/06 with cough and dyspnea, and then promptly manifested a GI bleed. Dr. Young felt her lower GI bleed was likely to be self-limited and did not recommend further intervention. Her H/H has continued to drop slowly. The patient also has a remarkably low albumin of 2.7,for somewone who has only recently developed decompensation. The patient was seen in the presence of several of her children (she has 8), who were quite determined to depict their mother's status as temporary, and quite convinced that she will improve with time. The patient herself is not so optimistic, and says she really dislikes being in the hospital and would prefer to remain at home. She wants minimal intervention, and we spent a lot of time creating a MOLST form to reflect her wishes. Lab Values: Abnormal Lab Results 11/11/17 11/11/17 11/11/17 06:20 06:20 06:20 WBC 4.2 RBC 2.81 L Hgb 8.7 L Hct 26 L MCV 92 MCH 31 MCHC 34 RDW 17 H Plt Count 58 L MPV 10 Sodium 138 Potassium 4.0 Chloride 105 Carbon Dioxide 26 Anion Gap 7 BUN 59 H Creatinine 1.79 H Est GFR ( Amer) 34.4 Est GFR (Non-Af Amer) 26.8 BUN/Creatinine Ratio 33.0 H Glucose 76 Calcium 10.0 Magnesium 1.7 L Total Bilirubin 0.70 AST 29 ALT 15 Alkaline Phosphatase 114 H Ammonia 41 C-Reactive Protein 46.91 H B-Natriuretic Peptide 239 H Total Protein 5.5 L Albumin 2.7 L Globulin 2.8 Albumin/Globulin Ratio 1.0 Laboratory Last Values WBC 4.2 10^3/ul (3.5-10.8) 11/11/17 06:20 RBC 2.81 10^6/ul (4.0-5.4) L 11/11/17 06:20 Hgb 8.7 g/dl (12.0-16.0) L 11/11/17 06:20 Hct 26 % (35-47) L 11/11/17 06:20 MCV 92 fL (80-97) 11/11/17 06:20 MCH 31 pg (27-31) 11/11/17 06:20 MCHC 34 g/dl (31-36) 11/11/17 06:20 RDW 17 % (10.5-15) H 11/11/17 06:20 Plt Count 58 10^3/ul (150-450) L 11/11/17 06:20 MPV 10 um3 (7.4-10.4) 11/11/17 06:20 Neut % (Auto) 69.4 % (38-83) 11/09/17 05:57 Lymph % (Auto) 11.1 % (25-47) L 11/09/17 05:57 [place] % (Auto) 15.7 % (1-9) H 11/09/17 05:57 Eos % (Auto) 2.0 % (0-6) 11/09/17 05:57 Baso % (Auto) 1.8 % (0-2) 11/09/17 05:57 Absolute Neuts (auto) 3.9 10^3/ul (1.5-7.7) 11/09/17 05:57 Absolute Lymphs (auto) 0.6 10^3/ul (1.0-4.8) L 11/09/17 05:57 Absolute Monos (auto) 0.9 10^3/ul (0-0.8) H 11/09/17 05:57 Absolute Eos (auto) 0.1 10^3/ul (0-0.6) 11/09/17 05:57 Absolute Basos (auto) 0.1 10^3/ul (0-0.2) 11/09/17 05:57 Absolute Nucleated RBC 0.02 10^3/ul 11/09/17 05:57 Nucleated RBC % 0.3 11/09/17 05:57 INR (Anticoag Therapy) 1.02 (0.77-1.02) 11/09/17 10:34 APTT 38.9 seconds (26.0-36.3) H 11/09/17 10:34 D-Dimer, Quantitative 231 ng/mL (Less Than 230) H 11/06/17 14:31 Sodium 138 mmol/L (133-145) 11/11/17 06:20 Potassium 4.0 mmol/L (3.5-5.0) 11/11/17 06:20 Chloride 105 mmol/L (101-111) 11/11/17 06:20 Carbon Dioxide 26 mmol/L (22-32) 11/11/17 06:20 Anion Gap 7 mmol/L (2-11) 11/11/17 06:20 BUN 59 mg/dL (6-24) H 11/11/17 06:20 Creatinine 1.79 mg/dL (0.51-0.95) H 11/11/17 06:20 Est GFR ( Amer) 34.4 (>60) 11/11/17 06:20 Est GFR (Non-Af Amer) 26.8 (>60) 11/11/17 06:20 BUN/Creatinine Ratio 33.0 (8-20) H 11/11/17 06:20 Glucose 76 mg/dL (70-100) 11/11/17 06:20 Lactic Acid 0.9 mmol/L (0.5-2.0) 11/06/17 06:37 Calcium 10.0 mg/dL (8.6-10.3) 11/11/17 06:20 Ionized Calcium 5.64 mg/dL (4.65-5.28) H 11/09/17 05:57 Phosphorus 3.0 mg/dL (2.5-5.0) 11/06/17 06:37 Magnesium 1.7 mg/dL (1.9-2.7) L 11/11/17 06:20 Total Bilirubin 0.70 mg/dL (0.2-1.0) 11/11/17 06:20 AST 29 U/L (13-39) 11/11/17 06:20 ALT 15 U/L (7-52) 11/11/17 06:20 Alkaline Phosphatase 114 U/L (34-104) H 11/11/17 06:20 Ammonia 41 mol/L (16-53) 11/11/17 06:20 Troponin I 0.03 ng/mL (<0.04) 11/06/17 06:37 C-Reactive Protein 46.91 mg/L (< 5.00) H 11/11/17 06:20 C-React Prot High Sens 62.15 mg/L 11/09/17 05:57 B-Natriuretic Peptide 239 pg/mL (-100) H 11/11/17 06:20 Total Protein 5.5 g/dL (6.4-8.9) L 11/11/17 06:20 Albumin 2.7 g/dL (3.2-5.2) L 11/11/17 06:20 Globulin 2.8 g/dL (2-4) 11/11/17 06:20 Albumin/Globulin Ratio 1.0 (1-3) 11/11/17 06:20 25-OH Vitamin D Total 62.3 ng/mL (20-50) H 11/06/17 06:37 TSH 2.74 mcIU/mL (0.34-5.60) 11/06/17 06:37 PTH Intact 6.1 pmol/L (1.3-9.3) 11/06/17 06:37 Calcium (PTH Intact) 11.2 mg/dL (8.6-10.3) H 11/06/17 06:37 Influenza A (Rapid) Negative (Negative) 11/06/17 10:25 Influenza B (Rapid) Negative (Negative) 11/06/17 10:25 - Objective Active Medications: Acetaminophen (Tylenol Tab*) 650 mg PO Q4H PRN PRN Reason: NOT SPECIFIED Last Admin: 11/07/17 07:57 Dose: 650 mg Albuterol/Ipratropium (Duoneb (Albuterol 2.5 Mg/Ipratropium 0.5 Mg)) 1 neb INH Q4H PRN PRN Reason: WHEEZING Last Admin: 11/08/17 20:53 Dose: 1 neb Ceftriaxone Sodium 1 gm/ (Sodium Chloride) 50 mls @ 200 mls/hr IVPB Q24H [facility] Last Admin: 11/11/17 10:09 Dose: 200 mls/hr Piperacillin Sod/Tazobactam (Sod 3.375 gm/ Sodium Chloride) 100 mls @ 25 mls/ hr IVPB Q8H [facility] Last Admin: 11/11/17 12:16 Dose: 25 mls/hr Azithromycin 500 mg/ Dextrose 250 mls @ 250 mls/hr IVPB Q24H [facility] Lactobacillus Rhamnosus (Culturelle*) 1 cap PO DAILY [facility] Last Admin: 11/11/17 09:10 Dose: 1 cap Nystatin (Nystatin Cream*) 1 applic TOPICAL BID [facility] Last Admin: 11/11/17 11:41 Dose: Not Given Omeprazole (Prilosec Cap*) 20 mg PO 0730 [facility] Last Admin: 11/11/17 09:10 Dose: 20 mg Spironolactone (Aldactone Tab*) 50 mg PO Q12HR [facility] Last Admin: 11/11/17 09:10 Dose: 50 mg Torsemide (Demadex*) 40 mg PO DAILY [facility] Last Admin: 11/11/17 09:10 Dose: 40 mg Triamcinolone Acetonide (Triamcinolone 0.025% Oint *) 1 applic TOPICAL BID [facility] Last Admin: 11/11/17 11:42 Dose: Not Given Vital Signs: Vital Signs: Temp Pulse Resp BP Pulse Ox 97.3 F 62 16 100/39 95 11/11/17 15:41 11/11/17 15:41 11/11/17 15:41 11/11/17 15:41 11/11/17 15:41 Patient Weight: Weight 200 lb 12.8 oz Intake and Output: Intake & Output 11/09/17 11/10/17 11/11/17 11/12/17 06:59 06:59 06:59 06:59 Intake Total 2182 1218 2100.2 1210 Output Total 300 950 0 500 Balance 4770 981 1237.2 710 Weight 204 lb 11.2 oz 198 lb 14.4 oz 200 lb 12.8 oz Intake: IV Fluids 399 30 510.2 30 ABX - AZITHROMYCIN 30 30 ABX - CEFTRIAXONE 30 ABX - PIPERACILLIN 223 130 NS (0.9%) 116 30 380.2 IVPB 563 838 400 380 ABX - AZITHROMYCIN 250 255 250 250 ABX - CEFTRIAXONE 98 55 50 50 ABX - PIPERACILLIN 81 100 80 NS (0.9%) 134 528 Oral 8261 537 2627 800 Output: Urine 300 950 0 500 Other: Estimated Void Medium Large Medium Date of Last Bowel 11/08/17 Movement # Bowel Movements 0 4 2 Estimated Stool Amount Large Medium Medium # Voids 2 0 2 ADLs: Meal Record Start: 11/06/17 10: 59 Freq: DAILY@0900,1400,1800 Status: Active Protocol: Created 11/06/17 10:59 System (Rec: 11/06/17 10:59 System TELE-C15) Document 11/06/17 14:00 [id number] (Rec: 11/06/17 14:51 [id number] TELE-C07) Document 11/06/17 18:00 [id number] (Rec: 11/06/17 22:40 GQU5974 TELE-C01) Document 11/07/17 09:00 [id number] (Rec: 11/07/17 18:08 VQH4419 TELE-C10) Document 11/07/17 14:00 [id number] (Rec: 11/07/17 18:11 DAH5059 TELE-C10) Document 11/07/17 18:00 STW1999 (Rec: 11/07/17 18:36 NHI8289 TELE-C10) Document 11/08/17 09:00 RFR8615 (Rec: 11/08/17 14:39 CDL2005 TELE-C09) Document 11/08/17 14:00 CZM8571 (Rec: 11/08/17 14:47 GCD6302 TELE-C09) Document 11/08/17 18:00 MQV4735 (Rec: 11/08/17 18:02 FHJ7144 TELE-C07) Document 11/09/17 09:00 UVE1640 (Rec: 11/09/17 11:42 BTM7982 TELE-C10) Document 11/09/17 14:00 UQM6093 (Rec: 11/09/17 14:48 VTI5310 TELE-C10) Document 11/10/17 09:00 TKI9748 (Rec: 11/10/17 10:00 RTN4772 TELE-C08) Document 11/10/17 13:09 LQV6099 (Rec: 11/10/17 13:09 KJV9233 TELE-C08) Document 11/11/17 09:00 FJD7212 (Rec: 11/11/17 12:30 DSX8374 TELE-C10) Document 11/11/17 14:00 XWV7364 (Rec: 11/11/17 15:16 EGJ8288 TELE-C10) Intake and Output Start: 11/06/17 10: 59 Freq: DAILY@0600,1400,2200 Status: Active Protocol: Created 11/06/17 10:59 System (Rec: 11/06/17 10:59 System TELE-C15) Document 11/06/17 14:00 [id number] (Rec: 11/06/17 14:51 SSP7371 TELE-C07) Document 11/06/17 17:25 EGR8456 (Rec: 11/06/17 17:51 AWB9088 TELE-C08) Document 11/06/17 22:00 SQC7167 (Rec: 11/06/17 22:41 LUT0499 TELE-C01) Document 11/07/17 03:57 ZIL5613 (Rec: 11/07/17 03:57 LMJ9497 TELE-C11) Document 11/07/17 14:00 DIP7459 (Rec: 11/07/17 18:11 NZT7063 TELE-C10) Document 11/07/17 22:00 SRA8096 (Rec: 11/07/17 22:31 LZG0782 TELE-C13) Document 11/08/17 03:09 ZDV9938 (Rec: 11/08/17 03:09 MXA3042 TELE-C11) Document 11/08/17 03:53 CAK4568 (Rec: 11/08/17 03:54 IXQ0719 TELE-C11) Document 11/08/17 14:00 FTN7764 (Rec: 11/08/17 14:47 IVH4577 TELE-C09) Document 11/08/17 21:11 NMC3196 (Rec: 11/08/17 21:12 JTS9143 TELE-C08) Document 11/09/17 04:11 VEM3655 (Rec: 11/09/17 04:12 YEE0530 TELE-C11) Document 11/09/17 06:00 ZLA4934 (Rec: 11/09/17 06:24 GOQ9680 TELE-C10) Document 11/09/17 14:00 HZX7618 (Rec: 11/09/17 14:48 ZYQ0360 TELE-C10) Document 11/09/17 22:00 PKD3580 (Rec: 11/09/17 22:43 FAX5048 TELE-C09) Document 11/10/17 06:00 OIC4399 (Rec: 11/10/17 07:12 KHF8096 TELE-C35) Document 11/10/17 13:51 ABP7745 (Rec: 11/10/17 13:51 HIF4572 TELE-C08) Document 11/10/17 22:00 OLH2225 (Rec: 11/10/17 22:34 FVK7284 TELE-C10) Document 11/11/17 05:44 ZSL5162 (Rec: 11/11/17 05:47 KHZ1449 TELE-C35) Document 11/11/17 14:00 KUW2243 (Rec: 11/11/17 15:16 [id number] TELE-C10) General Impression: Very pleasant, alert and interactive, but [place] elderly woman with left facial ecchymoses reclining in bed. Head: Symmetrical Eyes: No Scleral Icterus, PERRLA Ears/Nose/Mouth/Throat: Clear Oropharnyx Neck: Trachea Midline Cardiovascular: - - irregularly irregular, no murmur appreciated. PMI laterally displaced Respiratory: Symmetrical Chest Expansion and Respiratory Effort, - - Scattered rhonchi and rhonchorous cough, no rales Abdominal: No Hepatosplenomegaly Extremities: No Edema, - - venous stasis change Neurological: Alert and Oriented x 3 - Assessment Assessment: This patient has significant right heart failure and moderate to severe tricuspid insufficiency, with resultant difficulties with fluid balance. These problems are chronic and likely to progress, but most of her other issues at present may well be transient and capable of resolution. In particular if her fluid management is improved, and her GI bleeding ceases, her liver may regain adequate function. Also if her fluid balance is maximized her renal function may improve. She could regain her prior level of function, from before her fall. Her family is quite determined to try to help her regain her prior level of function, while still respecting her desire for very limited intervention. If she really did not want to return to the hospital for any reason, and wanted comfort measures only, she would qualify for hospice services on the basis of her right heart failure, especially with hepatic and renal compromise,and a secondary diagnosis of malnutrition, based on her albumin of 2.7. However, her family is not yet prepared to forego further hospitalizations, and it is reasonable to see how she does in the coming weeks and whether she regains her functional status. If she does not, she would be appropriate for hospice at home , and she is quite interested in this option in the future. Hopefully she will return to her former level of independence with driving, dancing and self-care. I do think she would be an appropriate candidate for our PATH program and would recommend referring her for that after discharge. Thanks for asking me to see her. - Plan Consult Plan (MU): Palliative
[2017-11-12] MEDS: ZOSYN 3.375 GM Q8H per EXTENDED INFUSION IVPB SCH ×6 (03:45→20:40)
[2017-11-12] MEDS: Omeprazole CAP* 20 MG PO SCH (09:17)
[2017-11-12] MEDS: Lactobacillus Acidophilu (GG)* 1 CAP CAP PO SCH (09:18)
[2017-11-12] MEDS: Spironolactone TAB* 25 MG PO SCH ×2 (09:18→18:16)
[2017-11-12] MEDS: Torsemide TAB* 20 MG PO SCH (09:18)
[2017-11-12] MEDS: Triamcinolone 0.025% OINT * 15 GM TUBE TOPICAL SCH ×2 (09:20→21:01)
[2017-11-12] MEDS: Nystatin CREAM* 30 GM TOPICAL SCH ×2 (09:20→21:01)
[2017-11-12 09:33] LABS: EGFR Non-African American 26.3 (>60)
[2017-11-12 09:45] LABS: Hematocrit 25 % (35-47); Hemoglobin 8.3 g/dl (12.0-16.0); Mean Corpuscular HGB Conc 34 g/dl (31-36); Mean Corpuscular Hemoglobin 31 pg (27-31); Mean Corpuscular Volume 92 fL (80-97); Mean Platelet Volume 10 um3 (7.4-10.4); Platelet Count 64 10^3/ul (150-450); Red Cell Distribution Width 17 % (10.5-15); White Blood Count 3.9 10^3/ul (3.5-10.8)
[2017-11-12] MEDS: cefTRIAXone* 1 GM in NS 0.9% 50 ML BAG IVPB SCH (10:51)
[2017-11-12] MEDS ORDERED: Azithromycin IV(*) 500 MG in D5W 250 ML BAG* 250 ML IVPB SCH (12:00)
[2017-11-13] MEDS: ZOSYN 3.375 GM Q8H per EXTENDED INFUSION IVPB SCH ×6 (05:10→20:21)
[2017-11-13] MEDS: Nystatin CREAM* 30 GM TOPICAL SCH ×2 (07:50→20:28)
[2017-11-13] MEDS: Spironolactone TAB* 25 MG PO SCH ×2 (07:51→17:07)
[2017-11-13] MEDS: Lactobacillus Acidophilu (GG)* 1 CAP CAP PO SCH (07:51)
[2017-11-13] MEDS: Omeprazole CAP* 20 MG PO SCH (07:51)
[2017-11-13] MEDS: Triamcinolone 0.025% OINT * 15 GM TUBE TOPICAL SCH ×2 (07:51→20:28)
[2017-11-13] MEDS: Torsemide TAB* 20 MG PO SCH (07:51)
[2017-11-13 09:57] LABS: ABS Basophils 0 10^3/ul (0-0.2); ABS Eosinophils 0.4 10^3/ul (0-0.6); ABS Monocytes 0.7 10^3/ul (0-0.8); ABS Neutrophils 2.1 10^3/ul (1.5-7.7); ABS Nucleated RBC 0 10^3/ul; Eosinophil % 8.6 % (0-6); Hematocrit 27 % (35-47); Lymphocyte % 23.8 % (25-47); Mean Corpuscular HGB Conc 33 g/dl (31-36); Mean Corpuscular Hemoglobin 30 pg (27-31); Mean Corpuscular Volume 92 fL (80-97); Mean Platelet Volume 10 um3 (7.4-10.4); Nucleated Red Blood Cells % 0.2; Platelet Count 77 10^3/ul (150-450); Red Blood Count 2.95 10^6/ul (4.0-5.4); Red Cell Distribution Width 17 % (10.5-15); White Blood Count 4.2 10^3/ul (3.5-10.8)
[2017-11-13 10:27] LABS: EGFR Non-African American 29.2 (>60)
[2017-11-13] MEDS ORDERED: Azithromycin IV(*) 500 MG in NS 0.9% 250 ML* 250 ML IVPB SCH (12:00)
--- NOTE | 2017-11-13 16:52 | RAD ---
INDICATION: New oxygen requirement. COMPARISON: Comparison is made with a prior chest x-ray study from [facility] 2017. TECHNIQUE: A CT scan of the chest was performed without intravenous contrast. Contiguous axial sections were obtained from the lung apices through the lung bases. Images were reconstructed in the coronal and sagittal planes. FINDINGS: There is a small patchy infiltrate in the posterior aspect of the right upper lobe and dependently in the right lower lobe. There are trace bilateral pleural effusions. No significant enlarged mediastinal or hilar lymph nodes are seen. The heart is moderately enlarged. There are coronary artery calcifications present. There is a trace pericardial effusion. The thoracic aorta is normal in caliber. There is moderate calcific plaque present. There are couple fluid density lesions visualized in the upper portion of the liver which are nonspecific finding on this noncontrast study. The larger lesion measures 2.3 cm in size. These likely represent cysts or hemangiomas. No significant focal osseous abnormality is seen. IMPRESSION: 1. SMALL PATCHY RIGHT UPPER AND LOWER LOBE INFILTRATE. 2. TRACE BILATERAL PLEURAL EFFUSIONS. 3. TRACE PERICARDIAL EFFUSION.
[2017-11-13] MEDS: Saline NASAL SPRAY 0.65%* BTL SCH ×2 (17:06→20:28)
[2017-11-14] MEDS: ZOSYN 3.375 GM Q8H per EXTENDED INFUSION IVPB SCH ×4 (04:15→13:05)
[2017-11-14 07:48] LABS: Hematocrit 24 % (35-47); Hemoglobin 8.2 g/dl (12.0-16.0); Mean Corpuscular HGB Conc 34 g/dl (31-36); Mean Corpuscular Hemoglobin 31 pg (27-31); Mean Corpuscular Volume 91 fL (80-97); Mean Platelet Volume 10 um3 (7.4-10.4); Platelet Count 73 10^3/ul (150-450); Red Blood Count 2.65 10^6/ul (4.0-5.4); Red Cell Distribution Width 17 % (10.5-15); White Blood Count 3.7 10^3/ul (3.5-10.8)
[2017-11-14 08:04] LABS: EGFR Non-African American 33.9 (>60)
[2017-11-14] MEDS: Nystatin CREAM* 30 GM TOPICAL SCH (09:07)
[2017-11-14] MEDS: Saline NASAL SPRAY 0.65%* BTL SCH ×2 (09:07→15:46)
[2017-11-14] MEDS: Triamcinolone 0.025% OINT * 15 GM TUBE TOPICAL SCH (09:07)
[2017-11-14] MEDS: Lactobacillus Acidophilu (GG)* 1 CAP CAP PO SCH (09:07)
[2017-11-14] MEDS: Torsemide TAB* 20 MG PO SCH (09:07)
[2017-11-14] MEDS: Spironolactone TAB* 25 MG PO SCH (09:08)
[2017-11-14] MEDS: Omeprazole CAP* 20 MG PO SCH (09:08)
[2017-11-14 09:25] VITALS: BP 108/45
[2017-11-14 14:27] LABS: Hematocrit 25 % (35-47); Hemoglobin 8.3 g/dl (12.0-16.0)
--- NOTE | 2017-11-15 12:59 | DS ---
CC: Visiting Nurse Service* DISCHARGE SUMMARY: DATE OF ADMISSION: 11/06/17 DATE OF DISCHARGE: 11/14/17 DISCHARGE DIAGNOSES: 1. Pneumonia. 2. Right heart failure. 3. Chronic atrial fibrillation. 4. Gastrointestinal bleeding, probably from upper source. 5. Hepatic encephalopathy. 6. Chronic thrombocytopenia. 7. Probable fatty liver. 8. Acute anemia due to gastrointestinal bleeding. 9. Anemia of chronic disease. 10. Elevated creatinine, chronic kidney disease. 11. Insomnia. 12. History of Graves' disease, status post iodine treatment. 13. Hypothyroidism. 14. History of breast cancer, status post mastectomy in 1992 and ductal carcinoma in situ of the left breast, 2011. 15. Hyperlipidemia. 16. Right bundle branch block. 17. Hypercalcemia. HISTORY: Ludmila Lara is an 86-year-old woman admitted with edema and increasing shortness of breath, wheezing in the setting of known right heart failure. Please see the dictated admission note for details of the present illness, past medical history, family history, social and personal history, review of systems, and physical examination. DIAGNOSTIC STUDIES/LAB DATA: CBC on admission: WBC 6.2, H and H 10.7/32, MCV 92, PLT 93K. Subsequent H and H went down to 8.3/25 on 11/12/17 with 9/27 on ; 8.2/24 on 11/14/17 and repeated 8.3/25 later on 11/14/17. Platelet count went down as low as 58K on 11/11/17, was up to 77K on 11/13/17 and 73K on 11/14/17. D-dimer was 231 on 12/07/17. INR 1.02 on 11/09/17 and PTT was 38.9. Chemistries on admission: Sodium 139, potassium 4.6, chloride 107, CO2 27, BUN and creatinine 42/1.32, calcium 11.2. Rest of the comprehensive metabolic panel was otherwise essentially within normal limits. Lactic acid was 0.9. Troponin was 0.03. C-reactive protein was 39.51. BNP was 235. 25-hydroxy vitamin D was elevated at 62.3. PTH level intact was 6.1 (normal). C-reactive protein subsequently went up to 56.75 on 11/07/17, gradually came down, as the patient was treated with antibiotics to 18.88 on 11/14/17. Ammonia level on was 100, subsequently came down to 41 on 11/11/17 and was 46 on 11/12/17. Ionized calcium was 5.71 on 11/08/17, 5.64 on 11/09/17. Creatinine went up to a high of 1.84 on 11/08/17 and 11/09/17, subsequently came down to 1.46 on . BUN went up to 63 on 11/10/17, was down to 42 on 11/14/17. Influenza A and B were negative. Blood cultures on 11/06/17 x2 and on 11/07/17 x2 were no growth. Stool for occult blood on 11/09/17 was positive. Stool for C. diff on 11/10/17 was negative. Imaging: Chest x-ray, portable, on 11/06/17, showed findings consistent with cardiogenic pulmonary edema with likely left greater than right pleural effusion. Chest x-ray on 11/09/17 showed cardiomegaly with no evidence of active cardiopulmonary disease. Chest CT on 11/13/17 showed small patchy right upper and lower lobe infiltrates , trace bilateral pleural effusions, trace pericardial infusion. When I looked at the films myself, however, I saw right lower lobe and left lower lobe infiltrates and did not appreciate the right upper lobe infiltrate. EKG on 11/06/17 showed atrial fibrillation with controlled ventricular response , right bundle branch block. No significant changes since previous EKG on 11/02. CONSULTATIONS: GI, Dr. Oscar Young, on 11/09/17. He saw the patient for bloody stools and incontinence. It is his impression that she had right heart failure, liver dysfunction probably on the basis of right heart failure and possibly nonalcoholic fatty liver disease. He felt that the bleeding is probably lower gastrointestinal origin. He felt that she might have right- sided diverticula or AV malformations. He did not think that colonoscopy would benefit her. He favored empiric PPI and discontinuing aspirin and heparin. Palliative Care consultation, Dr. Guerline Crews, 11/11/17. She felt that she had significant right heart failure and [id number] tricuspid insufficiency, which resulted in problems with fluid balance. She felt these problems were chronic and likely to progress. She felt that if her fluid management improved and her GI bleeding cease that her liver might regain adequate function and that her kidney function might improve as well. She noted that her family was very determined to help her regain her prior level of function. She felt that if she decides she did not want to come back to the hospital that she would be a candidate for hospice services on the basis of her right heart failure along with her hepatic and renal compromise and secondary diagnosis of malnutrition based on her albumin of 2.7. She noted, however, that her family was not prepared to forego further hospitalizations and it was reasonable to see how she does in the coming weeks, whether she regains her functional status. If she did not, she would be appropriate for hospice at home and she is quite interested in this option in the future. Hopefully, she will return to her former level of independence with driving, dancing, and self- care. She does think that she would be an appropriate candidate for the [facility] program and recommended referring her for that after discharge. HOSPITAL COURSE: The patient was initially admitted on 11/06/17. At that time , she was felt to have a worsening right heart failure in the setting of known chronic right heart failure. Her diuretics have been cut back because of low blood pressure and dropping her blood pressure with exertion. Her edema, however, had gotten bad enough that it was felt that IV diuretics would be needed to turn around. We worked up her elevated calcium, her PTH was normal. It was felt that this might have gotten up due to thiazide diuretics. A D- dimer was checked, but was only minimally elevated, felt to be normal for her age. CRP was checked and it was felt that this elevation in CRP likely represented infection and she was treated for pulmonary infection and this was confirmed when her CAT scan of her chest was done (see above). She was do not resuscitate, MOLST form was reviewed. She was initially given DVT prophylaxis with subcutaneous heparin. She was quite lethargic at the beginning. She initially did not diurese much after given IV furosemide, so she was switched to IV bumetanide. She became more oriented. It was felt that her lethargy was due to infection, possibly due to the elevated calcium and then subsequently found to have hepatic encephalopathy when her ammonia level came back at 100. She was started initially on ceftriaxone and azithromycin for possible respiratory infection on 11/07/17. Her bumetanide dose was increased. Her wheezing heard on the lung exam was treated with DuoNeb. On 11/08/17, she was noted she had been lethargic with low blood pressures. She did improve somewhat after getting lactulose for elevated ammonia levels. Because of low blood pressures, her diuretics had been held the previous night. I added on Zosyn to ceftriaxone and azithromycin on 11/08/17. She reiterated that she did not want resuscitation, intubation, or pacemaker. I offered Cardiology consultation, but this was declined by the patient and her family at this point. She had had Cardiology consultation during her recent admission. She diuresed with her weight gradually coming down. Her weight went down from 209 pounds at my office to 197 pounds on the day of discharge. On 11/09/07, she developed GI bleeding. Heparin and aspirin were stopped. Lactulose was stopped and Protonix was started. She received Bumex and spironolactone twice on 11/09/07. Bumex then was held because of nationwide shortage and she was switched to torsemide. She continued to have rales and wheezes on exam. Her stools remained loose and dark and looked really like melena suggesting an upper source eventually. By 11/11/07, it was felt that from a cardiac standpoint, she was fairly stable and her telemetry could be discontinued. I felt that her hepatic encephalopathy had improved. She began to eat better. She was able to shower. On 11/12/17, azithromycin and ceftriaxone were stopped and she was continued just on Zosyn. Her CRP continued to come down and she became more alert, was ambulatory. Feeling more like her normal self, better. I decided on 11/13/17 to confirm that she did have a pneumonia and ordered the CT of the chest and this did confirm pneumonia. By the time, on 11/14/17, she was feeling much better, she was walking in the parker with a steady gait with her walker. Her family felt that they could help her at home. She had family from out of town visiting and they were going to stay with her. She was feeling much better. She wants to go home because she did not sleep well in the hospital. Her family wondered if she could take trazodone again and I said it was okay to try. At the time of discharge, her vital signs were blood pressure 108/45, pulse 50, respirations 18, temperature 98.4, O2 sat 94%, weight 197 pounds. Chest showed bibasilar rales. I did now hear any wheezes. Heart was irregular with 1/6 systolic murmur. Abdomen: Nontender. Extremities showed trace to 1+ edema, which was down. Her CT of her chest was noted as above. Labs were as noted above. It was felt that her H and H was stable on recheck, revealed that she was no longer having GI bleeding. She had had a soft stool, still dark, but more formed. It was felt she could be discharged. At the time of discharge, she is to be on a usual diet. Activity as tolerated. MEDICATIONS: She is to have the following medications: 1. Torsemide 40 mg daily. 2. Spironolactone 50 mg twice daily. 3. Omeprazole 20 mg daily. 4. Probiotic once a day. 5. Levothyroxine 75 mcg daily. 6. Slow-Mag 2 a day. 7. Trazodone 50 mg one-half at bedtime as needed for sleep. 8. Vitamins as before. Prescriptions were sent to [facility]. She was told to take no aspirin for now. She is to follow up with me in 1 to 2 weeks. [id number]/[facility] #: [id number] SEVEN
== END 2017-11-14 16:05 | disposition home or self-care (01) | DRG 291 ==
LOC: ED 06:22 → MEDTELE 09:39 → MED 11-12 18:54
PROVIDERS: ADMIT Internal Medicine Geriatric Medicine; ATTEND Internal Medicine Geriatric Medicine
DX: I50.9 Heart failure, unspecified (principal); J18.9 Pneumonia, unspecified organism; D69.6 Thrombocytopenia, unspecified; K92.2 Gastrointestinal hemorrhage, unspecified; I48.2 Chronic atrial fibrillation; D62 Acute posthemorrhagic anemia; D63.1 Anemia in chronic kidney disease; E83.52 Hypercalcemia; I36.1 Nonrheumatic tricuspid (valve) insufficiency; K72.90 Hepatic failure, unspecified without coma; K76.0 Fatty (change of) liver, not elsewhere classified; N18.9 Chronic kidney disease, unspecified; G47.00 Insomnia, unspecified; E05.00 Thyrotoxicosis with diffuse goiter without thyrotoxic crisis or storm; E03.9 Hypothyroidism, unspecified; E78.5 Hyperlipidemia, unspecified; I45.10 Unspecified right bundle-branch block; Z85.3 Personal history of malignant neoplasm of breast; Z90.11 Acquired absence of right breast and nipple; Z79.82 Long term (current) use of aspirin; Z79.899 Other long term (current) drug therapy; Z88.5 Allergy status to narcotic agent; Z88.8 Allergy status to other drugs, medicaments and biological substances; Z82.3 Family history of stroke; Z82.49 Family history of ischemic heart disease and other diseases of the circulatory system; Z81.1 Family history of alcohol abuse and dependence; Z83.49 Family history of other endocrine, nutritional and metabolic diseases; Z87.891 Personal history of nicotine dependence
CPT/HCPCS: 36415; 70450; 71010; 71046; 71250; 80048; 80053; 82140; 82270; 82272; 82306; 82330; 83605; 83735; 83880; 83970; 84100; 84443; 84484; 85014; 85018; 85025; 85027; 85060; 85379; 85610; 85730; 86140; 86141; 87040; 87493; 87502; 93005; 94640; 94760; A9270-GY; J0456; J0696; J1644; J1940; J2543; J3475